=== PATIENT | male | born 1960 | race Caucasian/White ===

== ENCOUNTER 2019-05-01 10:17 | Emergency (ER) | payer BC, MEDICAID ==
[~2019-05-01] VITALS: Ht 190.5 cm; Wt 90.0 kg
[~2019-05-01 10:17] MED LIST: ASPI81TA30 PO; METO100T7 PO
[2019-05-01 10:29] VITALS: BP 104/66
--- NOTE | 2019-05-01 12:44 | NUR ---
NIL x [address] sharpe aware. Pt called to return to ER.
== END 2019-05-01 12:46 | disposition left against medical advice (07) ==
LOC: ER 10:18
DX: M54.89 Other dorsalgia (principal); Z53.21 Procedure and treatment not carried out due to patient leaving prior to being seen by health care provider

== ENCOUNTER 2020-04-08 15:15 | Inpatient (IN) | payer BC, MEDICAID ==
[~2020-04-08] VITALS: Ht 188 cm; Wt 100.0 kg
[2020-04-08] VITALS (8 sets, daily range): BP systolic 95–111; BP diastolic 44–60
--- NOTE | 2020-04-08 16:25 | NUR ---
Pt taken to ct via rsharron.
[2020-04-08 16:56] LABS: EOSINOPHILS % (AUTO) 0.8 % (0-6); LYMPHOCYTES # (AUTO) 0.3 X10'3 (1.1-4.8); LYMPHOCYTES % (AUTO) 5.8 % (21-51); MEAN CORPUSCULAR HEMOGLOBIN 34.3 PG (27.0-31.0); MEAN CORPUSCULAR VOLUME 103.9 FL (78-98); MEAN PLATELET VOLUME 7.8 FL (7.4-10.4); MONOCYTES # (AUTO) 0.5 X10'3 (0-0.9); MONOCYTES % (AUTO) 9.6 % (2-12); NEUTROPHILS % (AUTO) 82.8 % (42-75); PLATELET COUNT 78 X10'3 (140-440); RED BLOOD COUNT 1.93 X10'6 (4.70-6.10); RED CELL DISTRIBUTION WIDTH 28.8 % (11.5-14.5); WHITE BLOOD COUNT 4.8 X10'3 (4.5-11.0)
[2020-04-08 17:07] LABS: HEMATOCRIT 20.1 % (42.0-52.0); HEMOGLOBIN 6.6 g/dl (14.0-17.9)
[2020-04-08 17:18] LABS: ALANINE AMINOTRANSFERASE 54 U/L (12-78); ALBUMIN 2.3 G/DL (3.4-5.0); ALKALINE PHOSPHATASE 151 IU/L (46-116); ANION GAP 14 (8-16); ASPARTATE AMINO TRANSFERASE 144 U/L (10-37); BLOOD UREA NITROGEN 69 MG/DL (7-18); BUN/CREATININE RATIO 30.4 (5.4-32.0); CALCIUM 8.8 MG/DL (8.5-10.1); CHLORIDE 92 MMOL/L (99-107); CREATININE 2.27 MG/DL (0.60-1.10); GLUCOSE 92 MG/DL (70-104); SODIUM 129 MMOL/L (135-145); TOTAL CARBON DIOXIDE 22.6 MMOL/L (24-32); eGFR 30 ML/MIN
[2020-04-08 17:26] LABS: ALBUMIN/GLOBULIN RATIO 0.4 (1.1-1.5); POTASSIUM 4.3 MMOL/L (3.5-5.1); TOTAL PROTEIN 7.5 G/DL (6.4-8.2)
[2020-04-08 17:40] LABS: LIPASE 2082 U/L (73-393)
[2020-04-08] MEDS ORDERED: CefTRIAXone/D5W-Rocephin 1gm 50 ML IV ONE (17:40)
[2020-04-08] MEDS ORDERED: pantoprazole 40 MG vial IV ONE (17:40)
[2020-04-08] MEDS ORDERED: normal saline 1000ml 1,000 ML IV ONE (18:00)
[2020-04-08 18:05] LABS: PARTIAL THROMBOPLASTIN TIME 32 SECONDS (22-32)
[2020-04-08 18:26] LABS: CLARITY,URINE SLIGHTLY CLOUDY (Clear); COLOR,URINE YELLOW (Yellow); GLUCOSE, URINE NEGATIVE (Neg); KETONES,URINE TRACE mg/dl (Neg); LEUKOCYTE ESTERASE ,URINE NEGATIVE (Neg); NITRITES, URINE NEGATIVE (Neg); OCCULT BLOOD,URINE NEGATIVE (Neg); PROTEIN,URINE NEGATIVE (Neg)
[2020-04-08 18:28] LABS: NUCLEATED RED BLOOD CELLS 2 /100WBC (0-0); TOTAL CELLS COUNTED 100
[2020-04-08 18:29] LABS: ANISOCYTOSIS 3+; PLATELET ESTIMATE DECREASED; POLYCHROMASIA 2+; TARGET CELLS 2+
[2020-04-08 18:30] LABS: ROULEAUX 1+
[2020-04-08 18:32] LABS: SMUDGE CELLS 2+
[2020-04-08 18:36] LABS: UA COLLECTION TYPE FOLEY CATH
[2020-04-08 18:38] LABS: BACTERIA,URINE FEW /HPF (Neg); RBC,URINE NONE SEEN /HPF (0-2); SQUAMOUS EPITHELIAL CELL,UR FEW /LPF (FEW); WBC,URINE NONE SEEN /HPF (0-4)
--- NOTE | 2020-04-08 18:44 | NUR ---
CALLED BLOOD BANK HAVING A BIT OF :ISSUES SHOULD BE GOOD TO GO IN 20 MINUTES."
--- NOTE | 2020-04-08 19:26 | NUR ---
HOSPIALIST AT BEDSIDE ASSESSING PATIENT
[2020-04-08] MEDS ORDERED: ondansetron/PF 4mg/2ml inj IV PRN (19:35)
[2020-04-08] MEDS ORDERED: magnesium hydroxide 30ml (MOM) UD suspension PO PRN (19:35)
[2020-04-08] MEDS ORDERED: magnesium 4gm in 100ml NS 100 ML IV PRN (19:35)
[2020-04-08] MEDS ORDERED: magnesium 2GM in 50ml NS 50 ML IV PRN (19:35)
[2020-04-08] MEDS ORDERED: potassium Cl 20 mEq SR tablet PO PRN ×2 (19:35)
[2020-04-08] MEDS ORDERED: mag hydrox/Alum hydrox/simeth 30ml oral suspension PO PRN (19:35)
[2020-04-08] MEDS ORDERED: potassium Cl 40MEQ/1/2NS 520ml 520 ML IV PRN ×2 (19:35)
[2020-04-08] MEDS ORDERED: magnesium Cl slow-release 64mg tablet PO PRN (19:35)
[2020-04-08] MEDS ORDERED: thiamine inj. 100 MG in normal saline 100ml IV soln 100 ML IV ONE (19:40)
[2020-04-08] MEDS: K and/or MAG REPLACEMENT MC SCH (20:00)
[2020-04-08] MEDS ORDERED: FURO40TA4 PO (20:03)
[2020-04-08] MEDS ORDERED: LAN0.125T PO (20:03)
[2020-04-08] MEDS ORDERED: NADO40TA3 PO (20:03)
[2020-04-08] MEDS ORDERED: PANT40TA54 PO (20:03)
[2020-04-08] MEDS ORDERED: SPIR25TA5 PO (20:03)
[2020-04-08] MEDS ORDERED: MIDO5TAB4 PO (20:03)
[2020-04-08] MEDS ORDERED: TROS20TA4 PO (20:03)
[2020-04-08] MEDS: furosemide 40mg/4ml inj IV SCH (20:49)
[2020-04-08] MEDS: pantoprazole 40MG/NS 100ML BAG 100 ML IV SCH (20:55)
--- NOTE | 2020-04-08 22:30 | NUR ---
Back timed note, patient has recieved a total of 4 mg since 2229 medication was scanned but not saved refer to eMAR for Ativan note
--- NOTE | 2020-04-08 23:16 | NUR ---
PATIENT RESTING COMFORTABLY, ADMINSTERED ATIVAN FOR DT PROTOCOL
[2020-04-09] VITALS (8 sets, daily range): BP systolic 95–135; BP diastolic 53–70
--- NOTE | 2020-04-09 00:32 | NUR ---
700 ML OF VICENTE COLORED URINE COLLECTED FROM COLLINS. TOTAL AMOUNT SINCE 183.
[2020-04-09] MEDS: LORazepam 2 mg/ml vial IV PRN ×3 (00:59→11:09)
[2020-04-09] MEDS: pantoprazole 40MG/NS 100ML BAG 100 ML IV SCH ×5 (00:59→21:00)
[2020-04-09 01:16] LABS: HEMATOCRIT 24.8 % (42.0-52.0); HEMOGLOBIN 8.3 g/dl (14.0-17.9); MEAN CORPUSCULAR HEMOGLOBIN 33.3 PG (27.0-31.0); MEAN CORPUSCULAR HGB CONC 33.4 g/dL (33.0-36.5); MEAN CORPUSCULAR VOLUME 99.7 FL (78-98); MEAN PLATELET VOLUME 8.1 FL (7.4-10.4); PLATELET COUNT 68 X10'3 (140-440); RED BLOOD COUNT 2.49 X10'6 (4.70-6.10); WHITE BLOOD COUNT 5.2 X10'3 (4.5-11.0)
--- NOTE | 2020-04-09 03:06 | NUR ---
patient in bed eyes closed rr even un labored no observable s/s of acute stress atthis time will continue to monitor
--- NOTE | 2020-04-09 06:40 | NUR ---
At bedside to give PRN Ativan as pt has significant tremors. Pt mumbling, then asked what I was doing. When I explained what I was doing, pt became concerned stating "you're freaking the dog out". I attempted to reorient pt at that time.
[2020-04-09] MEDS: spironolactone 25 MG tablet PO SCH ×2 (08:00→20:00)
[2020-04-09] MEDS ORDERED: thiamine 100mg tablet PO SCH (08:00)
[2020-04-09] MEDS ORDERED: multivitamins, therapeutics tablet PO SCH (08:00)
[2020-04-09] MEDS ORDERED: folic acid 1mg tablet PO SCH (08:00)
[2020-04-09] MEDS: midodrine 5mg tablet PO SCH ×3 (08:00→21:00)
[2020-04-09] MEDS: digoxin 125mcg (0.125mg) tablet PO SCH (08:00)
[2020-04-09] MEDS: K and/or MAG REPLACEMENT MC SCH ×2 (08:00→20:00)
[2020-04-09] MEDS ORDERED: folic acid inj. 2 MG, thiamine inj. 100 MG, MVI, adult No.4 with vit. K 10 ML in dextro... IV SCH ×4 (08:00)
--- NOTE | 2020-04-09 08:11 | NUR ---
Attempted to rouse pt to assess his ability to take his PO medications. Pt mumbling incomprehensive sentences, and became easily agitated when I attempted to adjust his line and monitors. Unable to further rouse pt at this time.
[2020-04-09 08:27] LABS: HEMOGLOBIN 7.8 g/dl (14.0-17.9); LYMPHOCYTES # (AUTO) 0.5 X10'3 (1.1-4.8); MONOCYTES # (AUTO) 0.9 X10'3 (0-0.9); NEUTROPHILS # (AUTO) 3.7 X10'3 (1.8-7.7); WHITE BLOOD COUNT 5.1 X10'3 (4.5-11.0)
[2020-04-09 08:30] LABS: BASOPHILS % (AUTO) 0.8 % (0-1); EOSINOPHILS % (AUTO) 0.4 % (0-6); HEMATOCRIT 22.8 % (42.0-52.0); LYMPHOCYTES % (AUTO) 9.3 % (21-51); MEAN CORPUSCULAR HEMOGLOBIN 33.9 PG (27.0-31.0); MEAN CORPUSCULAR HGB CONC 34.2 g/dL (33.0-36.5); MEAN CORPUSCULAR VOLUME 99.2 FL (78-98); MEAN PLATELET VOLUME 7.7 FL (7.4-10.4); MONOCYTES % (AUTO) 16.8 % (2-12); NEUTROPHILS % (AUTO) 72.7 % (42-75); PLATELET COUNT 68 X10'3 (140-440); RED CELL DISTRIBUTION WIDTH 26.1 % (11.5-14.5)
[2020-04-09 08:35] LABS: OCCULT BLOOD STOOL NEGATIVE (Neg)
[2020-04-09 08:56] LABS: ALANINE AMINOTRANSFERASE 43 U/L (12-78); ALBUMIN 2.1 G/DL (3.4-5.0); ALKALINE PHOSPHATASE 135 IU/L (46-116); AMYLASE 37 U/L (25-115); ANION GAP 13 (8-16); ASPARTATE AMINO TRANSFERASE 119 U/L (10-37); BILIRUBIN,TOTAL 7.7 MG/DL (0.1-1.0); BLOOD UREA NITROGEN 62 MG/DL (7-18); BUN/CREATININE RATIO 35.2 (5.4-32.0); CALCIUM 8.2 MG/DL (8.5-10.1); CHLORIDE 96 MMOL/L (99-107); CREATININE 1.76 MG/DL (0.60-1.10); GLUCOSE 104 MG/DL (70-104); MAGNESIUM 1.6 MG/DL (1.5-2.4); SODIUM 131 MMOL/L (135-145); TOTAL CARBON DIOXIDE 21.6 MMOL/L (24-32); eGFR 40 ML/MIN
[2020-04-09 09:01] LABS: ALBUMIN/GLOBULIN RATIO 0.4 (1.1-1.5); LIPASE 1641 U/L (73-393); PLATELET ESTIMATE DECREASED; POTASSIUM 4.1 MMOL/L (3.5-5.1); TOTAL PROTEIN 6.9 G/DL (6.4-8.2)
[2020-04-09 09:04] LABS: TOTAL CELLS COUNTED 100
[2020-04-09 09:05] LABS: ANISOCYTOSIS 3+; HYPOCHROMASIA 1+; TARGET CELLS FEW
[2020-04-09 09:06] LABS: POLYCHROMASIA FEW
[2020-04-09] MEDS: furosemide 40mg/4ml inj IV SCH (09:49)
[2020-04-09] MEDS ORDERED: DIGOXIN IMMUNE FAB IV ONE (09:55)
[2020-04-09] MEDS ORDERED: NORMAL SALINE IV ONE (09:55)
--- NOTE | 2020-04-09 16:17 | NUR ---
Pt taken down to GI lab for EGD
--- NOTE | 2020-04-09 16:20 | NUR ---
Unable to Dart pt due to ALOC
[2020-04-09] MEDS ORDERED: fentaNYL/PF 50MCG/1 ML 2ML syringe ONE (17:57)
[2020-04-09] MEDS ORDERED: LIDOcaine Viscous 15ml cup ONE (17:57)
[2020-04-09] MEDS ORDERED: MIDAZolam 5mg/5ml vial ONE (17:57)
--- NOTE | 2020-04-09 18:00 | NUR ---
Patient in room PCU 3015. I have received report from Kin RN/ BALAJI RN and had the opportunity to ask questions and assume patient care.
--- NOTE | 2020-04-09 18:23 | NUR ---
Problems reprioritized. Patient report given, questions answered & plan of care reviewed with Abelino LOUIS.
[2020-04-09] MEDS ORDERED: metoprolol tartrate 25mg tablet PO SCH (20:00)
[2020-04-09] MEDS ORDERED: TROSPIUM CHLORIDE 20 MG PO SCH (21:00)
[2020-04-10] MEDS: pantoprazole 40MG/NS 100ML BAG 100 ML IV SCH ×6 (00:16→20:32)
[2020-04-10] MEDS: LORazepam 2 mg/ml vial IV PRN ×5 (00:37→17:12)
[2020-04-10 02:00] VITALS: BP 118/64
--- NOTE | 2020-04-10 02:42 | NUR ---
PAGER ID: [phone] MESSAGE: [id number] SHARON BRODY, RETURNED FROM EGD WITH NO ORDER FOR COLLINS CATHETER. PATIENT HAS MULITPLE WOUNDS . ALSO IS CONFUSED AT THIS TIME WELL. MAY WE KEEP IT FOR NOW AND GET AN ORDER TO DO SO THANK YOU KENYON LOUIS [phone]
[2020-04-10 06:30] LABS: BASOPHILS % (AUTO) 0.7 % (0-1); EOSINOPHILS % (AUTO) 0.5 % (0-6); HEMOGLOBIN 8.3 g/dl (14.0-17.9); LYMPHOCYTES # (AUTO) 0.3 X10'3 (1.1-4.8); LYMPHOCYTES % (AUTO) 6.7 % (21-51); MEAN CORPUSCULAR HEMOGLOBIN 33.3 PG (27.0-31.0); MEAN CORPUSCULAR HGB CONC 33.2 g/dL (33.0-36.5); MEAN CORPUSCULAR VOLUME 100.1 FL (78-98); MEAN PLATELET VOLUME 7.4 FL (7.4-10.4); MONOCYTES # (AUTO) 0.9 X10'3 (0-0.9); MONOCYTES % (AUTO) 18.9 % (2-12); NEUTROPHILS # (AUTO) 3.5 X10'3 (1.8-7.7); NEUTROPHILS % (AUTO) 73.2 % (42-75); PLATELET COUNT 82 X10'3 (140-440); RED CELL DISTRIBUTION WIDTH 26.6 % (11.5-14.5); WHITE BLOOD COUNT 4.8 X10'3 (4.5-11.0)
--- NOTE | 2020-04-10 06:30 | NUR ---
Patient in room PCU 3015. I have received report from Abelino LOUIS and had the opportunity to ask questions and assume patient care.
--- NOTE | 2020-04-10 06:31 | NUR ---
Problems reprioritized. Patient report given, questions answered & plan of care reviewed with VICENTE LOUIS.
[2020-04-10 06:55] LABS: ALANINE AMINOTRANSFERASE 52 U/L (12-78); ALBUMIN 2.1 G/DL (3.4-5.0); ALKALINE PHOSPHATASE 143 IU/L (46-116); AMYLASE 23 U/L (25-115); ANION GAP 10 (8-16); ASPARTATE AMINO TRANSFERASE 115 U/L (10-37); BILIRUBIN,TOTAL 7.3 MG/DL (0.1-1.0); BLOOD UREA NITROGEN 49 MG/DL (7-18); BUN/CREATININE RATIO 39.8 (5.4-32.0); CALCIUM 8.6 MG/DL (8.5-10.1); CHLORIDE 100 MMOL/L (99-107); CREATININE 1.23 MG/DL (0.60-1.10); GLUCOSE 115 MG/DL (70-104); LIPASE 744 U/L (73-393); MAGNESIUM 1.5 MG/DL (1.5-2.4); SODIUM 137 MMOL/L (135-145); TOTAL CARBON DIOXIDE 26.6 MMOL/L (24-32); eGFR 61 ML/MIN
[2020-04-10 06:56] LABS: PHOSPHORUS 1.9 MG/DL (2.3-4.5); POTASSIUM 3.9 MMOL/L (3.5-5.1); TOTAL PROTEIN 7.1 G/DL (6.4-8.2)
[2020-04-10 06:57] LABS: ALBUMIN/GLOBULIN RATIO 0.4 (1.1-1.5)
[2020-04-10 07:00] VITALS: BP 131/79
[2020-04-10 07:38] LABS: ANISOCYTOSIS 3+; HYPOCHROMASIA 1+; PLATELET ESTIMATE DECREASED; POLYCHROMASIA FEW; TARGET CELLS FEW; TOTAL CELLS COUNTED 100
[2020-04-10] MEDS: spironolactone 25 MG tablet PO SCH ×3 (08:00→20:00)
[2020-04-10] MEDS: midodrine 5mg tablet PO SCH ×4 (08:00→20:33)
[2020-04-10] MEDS ORDERED: thiamine inj. 100 MG, MVI, adult No.4 with vit. K 10 ML in dextrose 5% water 500ml 500 ML IV SCH ×3 (08:00)
[2020-04-10] MEDS: K and/or MAG REPLACEMENT MC SCH ×2 (08:00→20:00)
[2020-04-10] MEDS: digoxin 125mcg (0.125mg) tablet PO SCH (08:00)
[2020-04-10] MEDS: folic acid 1mg/0.2ml inj IV SCH (08:21)
--- NOTE | 2020-04-10 10:01 | NUR ---
Pt with a low Nicolás of 11. Per physical assessment pt with BLE 2+ edema, excoriation to butt, and maceration to back and bilat leg. Wound care has been consulted for further skin assessment. Pt NPO at this time. Will continue to follow closely and monitor need for nutrition intervention. Addendum: 04/10/20 at [address] Amended: Links added.
[2020-04-10 11:00] VITALS: BP 109/60
--- NOTE | 2020-04-10 12:54 | NUR ---
Patient appears to be aggravated and shaky non stop. Ativan 2mg was given, patient grimacing facial expressions noted. Will continue to support patient and backing off Ativan.
--- NOTE | 2020-04-10 13:52 | NUR ---
Patient unable to arise. Cannot do incentive or any teachings. Will continue to monitor.
[2020-04-10 15:00] VITALS: BP 98/65
--- NOTE | 2020-04-10 15:56 | NUR ---
Paged Dr. Davalos PAGER ID: [phone] MESSAGE: Re: Cesar Do RM [id number]. CT done. Would you like fluids running and [facility]? Please advise Mara LOUIS 1920
--- NOTE | 2020-04-10 16:36 | NUR ---
Radiology called to have a conference regarding the patient CT scan. records management technician named Nasreen was given cell number to Dr. Davalos to discuss results of CT of abd. Will continue to monitor.
--- NOTE | 2020-04-10 17:02 | NUR ---
Dr. Davalos called regarding Patients concerns. is aware of CT scan and is not too worried about results. Replace Phos per protocol and banna bag is enough fluids. is aware teeth chattering repeatedly. Will continue to monitor. Addendum: 04/10/20 at 1730 by Mara Tao RN not wanting an order for [facility]. Will continue to monitor. Addendum: 04/10/20 at 1732 by Mara Tao RN MD also aware of patients disposition and unable to follow commands or answer appropriately. MD wants to only use Ativan when absolutely necessary.
[2020-04-10] MEDS ORDERED: sodium phosphate inj. 15 MMOL in dextrose 5%-water 250 ML IV ONE (17:05)
[2020-04-10 18:00] VITALS: BP 90/56
--- NOTE | 2020-04-10 18:18 | NUR ---
Patient in room PCU 3015. I have received report from Abelino LOUIS and had the opportunity to ask questions and assume patient care.
[2020-04-10] MEDS: oxybutynin 5mg tablet PO SCH (20:00)
[2020-04-10 22:00] VITALS: BP 115/66
--- NOTE | 2020-04-10 22:33 | NUR ---
PAGER ID: [phone] MESSAGE: [id number] SHARON BRODY . NPO , VICENTE URINE , NO IVFS . WAS AQURING IF WE COULD/SHOULD ADD THEM THANKS KENYON LOUIS [phone]
[2020-04-11 02:00] VITALS: BP 109/53
[2020-04-11] MEDS: pantoprazole 40MG/NS 100ML BAG 100 ML IV SCH ×6 (06:00→23:58)
[2020-04-11 06:30] VITALS: BP 102/44
[2020-04-11 06:36] LABS: BASOPHILS % (AUTO) 0.8 % (0-1); HEMATOCRIT 24.5 % (42.0-52.0); HEMOGLOBIN 8.3 g/dl (14.0-17.9); LYMPHOCYTES # (AUTO) 0.5 X10'3 (1.1-4.8); MEAN CORPUSCULAR HGB CONC 33.8 g/dL (33.0-36.5); NEUTROPHILS # (AUTO) 4.3 X10'3 (1.8-7.7); WHITE BLOOD COUNT 5.9 X10'3 (4.5-11.0)
[2020-04-11 06:38] LABS: EOSINOPHILS % (AUTO) 0.7 % (0-6); LYMPHOCYTES % (AUTO) 7.9 % (21-51); MEAN CORPUSCULAR HEMOGLOBIN 33.6 PG (27.0-31.0); MEAN CORPUSCULAR VOLUME 99.4 FL (78-98); MEAN PLATELET VOLUME 7.4 FL (7.4-10.4); MONOCYTES % (AUTO) 17.6 % (2-12); PLATELET COUNT 85 X10'3 (140-440); RED BLOOD COUNT 2.46 X10'6 (4.70-6.10); RED CELL DISTRIBUTION WIDTH 28.1 % (11.5-14.5)
--- NOTE | 2020-04-11 06:45 | NUR ---
Patient in room PCU 3015. I have received report from MISSY Roca and had the opportunity to ask questions and assume patient care.
[2020-04-11 07:00] LABS: ALANINE AMINOTRANSFERASE 50 U/L (12-78); AMYLASE 16 U/L (25-115); ANION GAP 9 (8-16); ASPARTATE AMINO TRANSFERASE 110 U/L (10-37); BILIRUBIN,TOTAL 6.3 MG/DL (0.1-1.0); BLOOD UREA NITROGEN 37 MG/DL (7-18); BUN/CREATININE RATIO 37.8 (5.4-32.0); CALCIUM 8.4 MG/DL (8.5-10.1); CHLORIDE 104 MMOL/L (99-107); CREATININE 0.98 MG/DL (0.60-1.10); GLUCOSE 113 MG/DL (70-104); LIPASE 425 U/L (73-393); MAGNESIUM 1.5 MG/DL (1.5-2.4); POTASSIUM 3.7 MMOL/L (3.5-5.1); SODIUM 140 MMOL/L (135-145); TOTAL CARBON DIOXIDE 27.3 MMOL/L (24-32); eGFR 79 ML/MIN
[2020-04-11 07:05] LABS: PHOSPHORUS 2.1 MG/DL (2.3-4.5)
[2020-04-11 07:12] LABS: ANISOCYTOSIS 3+; HYPOCHROMASIA 1+; NUCLEATED RED BLOOD CELLS 2 /100WBC (0-0); PLATELET ESTIMATE DECREASED; POLYCHROMASIA 2+; ROULEAUX 1+; TARGET CELLS 2+; TOTAL CELLS COUNTED 100
[2020-04-11 07:13] LABS: TOXIC VACUOLATION 1+
[2020-04-11 07:20] LABS: ALBUMIN/GLOBULIN RATIO 0.4 (1.1-1.5); TOTAL PROTEIN 6.8 G/DL (6.4-8.2)
[2020-04-11 07:24] LABS: ALKALINE PHOSPHATASE 138 IU/L (46-116)
[2020-04-11] MEDS: midodrine 5mg tablet PO SCH ×3 (07:32→21:21)
[2020-04-11] MEDS: digoxin 125mcg (0.125mg) tablet PO SCH (07:32)
[2020-04-11] MEDS: oxybutynin 5mg tablet PO SCH (07:32)
[2020-04-11] MEDS: K and/or MAG REPLACEMENT MC SCH ×2 (07:32→20:00)
[2020-04-11] MEDS ORDERED: bisacodyl 10mg suppository rectal RC PRN (07:35)
[2020-04-11] MEDS: spironolactone 25 MG tablet PO SCH ×2 (08:00→20:00)
[2020-04-11] MEDS: thiamine inj. 100 MG in normal saline 100ml IV soln 100 ML IV SCH (08:34)
[2020-04-11] MEDS: folic acid 1mg/0.2ml inj IV SCH (08:34)
[2020-04-11 11:00] VITALS: BP 109/69
--- NOTE | 2020-04-11 12:01 | NUR ---
Pt with a low Nicolás of 11. Per physical assessment pt with BLE 2+ edema, excoriation to butt, and maceration to back and bilat leg. Wound care has seen patient, reporting that pt has left elbow abrasion, reddened sacrum SDTI/DTI, right orbital TBI. ST saw patient this morning, recommends feeder with pureed diet and nectar thick liquids. Will continue to follow closely and monitor need for nutrition intervention. Addendum: 04/11/20 at [address] Amended: Links added.
[2020-04-11] MEDS ORDERED: dextrose 5%-1/2 normal saline 1,000 ML IV SCH (12:40)
[2020-04-11] MEDS ORDERED: LORazepam 2 mg/ml vial IV PRN (12:40)
[2020-04-11] MEDS ORDERED: haloperidol lactate 5mg/ml inj IM PRN (12:40)
[2020-04-11] MEDS: dextrose 5%-normal saline 1,000 ML IV SCH ×2 (13:08→23:59)
[2020-04-11 15:00] VITALS: BP 102/63
[2020-04-11 18:00] VITALS: BP 125/74
--- NOTE | 2020-04-11 18:20 | NUR ---
Problems reprioritized. Patient report given, questions answered & plan of care reviewed with MISSY [place].
[2020-04-11] MEDS: LORazepam 2 mg/ml vial IV PRN ×2 (20:30→23:48)
[2020-04-11] MEDS ORDERED: oxybutynin 5mg tablet PO ONE (20:50)
[2020-04-11 22:00] VITALS: BP 121/71
[2020-04-12 02:00] VITALS: BP 102/71
[2020-04-12] MEDS: LORazepam 2 mg/ml vial IV PRN ×2 (04:44→14:10)
[2020-04-12] MEDS: dextrose 5%-normal saline 1,000 ML IV SCH ×3 (04:46→21:14)
[2020-04-12] MEDS: pantoprazole 40MG/NS 100ML BAG 100 ML IV SCH ×4 (05:18→21:03)
--- NOTE | 2020-04-12 06:31 | NUR ---
Patient in room PCU 3015. I have received report from Vita LOUIS and had the opportunity to ask questions and assume patient care.
--- NOTE | 2020-04-12 06:32 | NUR ---
Problems reprioritized. Patient report given, questions answered & plan of care reviewed with Vita RN.
--- NOTE | 2020-04-12 06:39 | NUR ---
pt is confused, disoriented, unable to follow commands, and directions. He is very spontaneous and sporadic. Bed alarm on. Hx of extensive falls r/t ETOH. Pt has numerous bruises ranging from light yellow to dark purple all over his body; right flank (marked to monitor growth), bilateral knee bruises, right orbital and left elbow. Platelets are low, monitoring for bleeding. Abd is jaundiced with white patches of mottling, his states its from a heating pad. Pt was able to swallow and eat a few bites of yogurt this shift. Pt is mostly confused and disoriented and does not follow directions, safety measures or instructions provided by the nursing staff. Will continue to monitor pt.
--- NOTE | 2020-04-12 06:43 | NUR ---
Patient in room PCU 3015. I have received report from Jean LOUIS and had the opportunity to ask questions and assume patient care.
[2020-04-12 06:45] LABS: EOSINOPHILS % (AUTO) 0.4 % (0-6); LYMPHOCYTES # (AUTO) 0.5 X10'3 (1.1-4.8); PLATELET COUNT 87 X10'3 (140-440)
[2020-04-12 06:46] LABS: BASOPHILS % (AUTO) 0.3 % (0-1); HEMATOCRIT 23.7 % (42.0-52.0); LYMPHOCYTES % (AUTO) 7.2 % (21-51); MEAN CORPUSCULAR HEMOGLOBIN 33.9 PG (27.0-31.0); MEAN CORPUSCULAR HGB CONC 33.6 g/dL (33.0-36.5); MEAN PLATELET VOLUME 7.1 FL (7.4-10.4); MONOCYTES # (AUTO) 1.2 X10'3 (0-0.9); MONOCYTES % (AUTO) 17.7 % (2-12); NEUTROPHILS # (AUTO) 4.9 X10'3 (1.8-7.7); NEUTROPHILS % (AUTO) 74.4 % (42-75); RED BLOOD COUNT 2.35 X10'6 (4.70-6.10); RED CELL DISTRIBUTION WIDTH 28.9 % (11.5-14.5); WHITE BLOOD COUNT 6.5 X10'3 (4.5-11.0)
[2020-04-12 06:50] LABS: ALANINE AMINOTRANSFERASE 48 U/L (12-78); ALBUMIN 1.9 G/DL (3.4-5.0); ALKALINE PHOSPHATASE 135 IU/L (46-116); AMYLASE 15 U/L (25-115); ANION GAP 7 (8-16); ASPARTATE AMINO TRANSFERASE 103 U/L (10-37); BILIRUBIN,TOTAL 5.8 MG/DL (0.1-1.0); BLOOD UREA NITROGEN 27 MG/DL (7-18); BUN/CREATININE RATIO 29.7 (5.4-32.0); CALCIUM 8.1 MG/DL (8.5-10.1); CHLORIDE 109 MMOL/L (99-107); CREATININE 0.91 MG/DL (0.60-1.10); GLUCOSE 140 MG/DL (70-104); LIPASE 283 U/L (73-393); MAGNESIUM 1.5 MG/DL (1.5-2.4); POTASSIUM 3.4 MMOL/L (3.5-5.1); SODIUM 144 MMOL/L (135-145); TOTAL CARBON DIOXIDE 28.5 MMOL/L (24-32); eGFR 86 ML/MIN
[2020-04-12 06:53] LABS: ALBUMIN/GLOBULIN RATIO 0.4 (1.1-1.5); PHOSPHORUS 1.7 MG/DL (2.3-4.5); TOTAL PROTEIN 6.4 G/DL (6.4-8.2)
[2020-04-12 07:00] VITALS: BP 110/67
[2020-04-12 07:41] LABS: ANISOCYTOSIS 3+; PLATELET ESTIMATE DECREASED; TARGET CELLS 1+
[2020-04-12] MEDS: folic acid 1mg/0.2ml inj IV SCH (07:47)
[2020-04-12] MEDS: thiamine inj. 100 MG in normal saline 100ml IV soln 100 ML IV SCH (07:48)
[2020-04-12] MEDS: oxybutynin 5mg tablet PO SCH ×2 (08:00→21:14)
[2020-04-12] MEDS: K and/or MAG REPLACEMENT MC SCH ×3 (08:00→20:00)
[2020-04-12] MEDS: midodrine 5mg tablet PO SCH ×3 (08:00→21:05)
[2020-04-12] MEDS: spironolactone 25 MG tablet PO SCH ×2 (08:00→21:21)
--- NOTE | 2020-04-12 08:28 | NUR ---
MRI, [facility] is advising that MRI is not advised. Patient is not a good candidate for MRI. Will page Dr. Davalos
--- NOTE | 2020-04-12 08:31 | NUR ---
promotional table spacer PAGER ID: [phone] MESSAGE: Re: Cesar Madison [id number]. MRI called stating Pt not good canidate is CT with contrast an option? Also may I may N/O for K and Mg replacement? Please advise Mara LOUIS [phone]
--- NOTE | 2020-04-12 08:52 | NUR ---
Dr. Davalos at bedside with patient and nurse. still believes he is being over sedated with Ativan, kepp going forward with Not using it only Q6. New orders to stop DIg, have replacement orders for K, Mg, and Phos. Patient is improving on labs and being awake. MD is aware of belly and foot pain. No need for MRI due to patients inability to follow commands. CT is not being ordered at this time. We will continue to monitor.
[2020-04-12] MEDS ORDERED: potassium Cl 40MEQ/1/2NS 520ml 520 ML IV PRN (09:20)
[2020-04-12] MEDS ORDERED: magnesium 4gm in 100ml NS 100 ML IV PRN (09:20)
[2020-04-12] MEDS ORDERED: sodium phosphate inj. 15 MMOL in dextrose 5%-water 250 ML IV PRN ×2 (09:20→09:50)
[2020-04-12] MEDS ORDERED: potassium Cl 20 mEq SR tablet PO PRN (09:20)
[2020-04-12] MEDS ORDERED: sodium phosphate inj. 30 MMOL in dextrose 5%-water 250 ML IV PRN ×2 (09:20→09:50)
[2020-04-12 10:11] LABS: POTASSIUM 3.5 MMOL/L (3.5-5.1)
[2020-04-12 10:12] LABS: PHOSPHORUS 1.6 MG/DL (2.3-4.5)
[2020-04-12] MEDS: morphine 2 MG/ML inj. syringe IV PRN ×2 (10:43→21:04)
[2020-04-12] MEDS: potassium Cl 20 mEq SR tablet PO PRN (10:44)
[2020-04-12] MEDS: Neutra Phos packet PO PRN (10:45)
[2020-04-12 11:00] VITALS: BP 103/62
--- NOTE | 2020-04-12 11:34 | NUR ---
Dr. Davalos was informed about patients aggressive behaviors, teeth clenching and biting of cheeks and tongue and rapid stigma in both eyes. Patient is hallucinating being aggravated and aggressive. MD is aware and believes it is in correlation of ETOH withdrawals. Use Ativan if needed. We will continue to monitor. Addendum: 04/12/20 at 1204 by Mara Tao RN Add Liquid Multi vit to daily medication regiment.
[2020-04-12] MEDS: MULTIVIT-MIN/FERROUS GLUCONATE 9 MG/15 ML LIQUID PO SCH (14:05)
[2020-04-12 15:00] VITALS: BP 115/53
[2020-04-12 18:00] VITALS: BP 122/63
--- NOTE | 2020-04-12 18:03 | NUR ---
Problems reprioritized. Patient report given, questions answered & plan of care reviewed with Maddison LOUIS.
[2020-04-12] MEDS ORDERED: thiamine inj. 100 MG in normal saline 100ml IV soln 99 ML IV SCH (20:43)
[2020-04-12 22:00] VITALS: BP 120/66
[2020-04-13 02:00] VITALS: BP 124/62
[2020-04-13] MEDS: pantoprazole 40MG/NS 100ML BAG 100 ML IV SCH ×5 (02:16→20:34)
[2020-04-13] MEDS: LORazepam 2 mg/ml vial IV PRN ×8 (02:16→23:42)
[2020-04-13] MEDS: dextrose 5%-normal saline 1,000 ML IV SCH ×4 (05:30→23:41)
[2020-04-13 06:00] VITALS: BP 123/54
--- NOTE | 2020-04-13 06:45 | NUR ---
Patient in room PCU 3015. I have received report from Felix LOUIS and had the opportunity to ask questions and assume patient care.
--- NOTE | 2020-04-13 06:47 | NUR ---
Problems reprioritized. Patient report given, questions answered & plan of care reviewed with Angela LOUIS.
--- NOTE | 2020-04-13 07:03 | NUR ---
Patient in room PCU 3015. I have received report from Felix LOUIS and had the opportunity to ask questions and assume patient care.
[2020-04-13 07:06] LABS: ALANINE AMINOTRANSFERASE 52 U/L (12-78); ALBUMIN 1.9 G/DL (3.4-5.0); ALKALINE PHOSPHATASE 140 IU/L (46-116); AMYLASE 16 U/L (25-115); ANION GAP 8 (8-16); ASPARTATE AMINO TRANSFERASE 111 U/L (10-37); BILIRUBIN,TOTAL 5.5 MG/DL (0.1-1.0); BLOOD UREA NITROGEN 20 MG/DL (7-18); BUN/CREATININE RATIO 21.5 (5.4-32.0); CHLORIDE 115 MMOL/L (99-107); CREATININE 0.93 MG/DL (0.60-1.10); GLUCOSE 120 MG/DL (70-104); LIPASE 315 U/L (73-393); MAGNESIUM 1.3 MG/DL (1.5-2.4); POTASSIUM 3.4 MMOL/L (3.5-5.1); SODIUM 148 MMOL/L (135-145); TOTAL CARBON DIOXIDE 25.5 MMOL/L (24-32); eGFR 84 ML/MIN
[2020-04-13 07:07] LABS: ALBUMIN/GLOBULIN RATIO 0.4 (1.1-1.5); PHOSPHORUS 1.8 MG/DL (2.3-4.5); TOTAL PROTEIN 6.5 G/DL (6.4-8.2)
[2020-04-13 07:24] LABS: HEMOGLOBIN 8.1 g/dl (14.0-17.9); MEAN PLATELET VOLUME 7.2 FL (7.4-10.4); MONOCYTES # (AUTO) 1.1 X10'3 (0-0.9); MONOCYTES % (AUTO) 14.8 % (2-12); NEUTROPHILS # (AUTO) 5.6 X10'3 (1.8-7.7)
[2020-04-13 07:26] LABS: BASOPHILS % (AUTO) 0.5 % (0-1); EOSINOPHILS # (AUTO) 0.1 X10'3 (0-0.9); EOSINOPHILS % (AUTO) 0.7 % (0-6); HEMATOCRIT 24.7 % (42.0-52.0); LYMPHOCYTES # (AUTO) 0.6 X10'3 (1.1-4.8); LYMPHOCYTES % (AUTO) 8.3 % (21-51); MEAN CORPUSCULAR HEMOGLOBIN 33.7 PG (27.0-31.0); MEAN CORPUSCULAR HGB CONC 32.8 g/dL (33.0-36.5); MEAN CORPUSCULAR VOLUME 102.8 FL (78-98); NEUTROPHILS % (AUTO) 75.7 % (42-75); PLATELET COUNT 95 X10'3 (140-440); RED CELL DISTRIBUTION WIDTH 28.7 % (11.5-14.5); WHITE BLOOD COUNT 7.4 X10'3 (4.5-11.0)
[2020-04-13] MEDS: K and/or MAG REPLACEMENT MC SCH ×2 (08:00→20:00)
[2020-04-13] MEDS: thiamine inj. 100 MG in normal saline 100ml IV soln 100 ML IV SCH (08:17)
[2020-04-13] MEDS: folic acid 1mg/0.2ml inj IV SCH (08:18)
[2020-04-13] MEDS: spironolactone 25 MG tablet PO SCH ×2 (09:34→20:33)
[2020-04-13] MEDS: midodrine 5mg tablet PO SCH ×3 (09:34→20:38)
[2020-04-13] MEDS: MULTIVIT-MIN/FERROUS GLUCONATE 9 MG/15 ML LIQUID PO SCH (09:34)
[2020-04-13] MEDS: oxybutynin 5mg tablet PO SCH ×2 (09:34→20:34)
[2020-04-13 09:41] LABS: ANISOCYTOSIS 3+; HYPOCHROMASIA 1+; PLATELET ESTIMATE DECREASED; POLYCHROMASIA FEW; STOMATOCYTES FEW; TARGET CELLS FEW; TEAR DROP CELLS FEW
[2020-04-13] MEDS: magnesium Cl slow-release 64mg tablet PO PRN ×2 (10:07→20:39)
[2020-04-13 11:00] VITALS: BP 108/64
[2020-04-13] MEDS ORDERED: lactulose 20gm/30ml cup PO ONE (11:45)
--- NOTE | 2020-04-13 11:45 | NUR ---
Notified Dr. Reynolds regarding ammonia level. PAGER ID: [phone] MESSAGE: [id number]. Juan Madison. Ammonia level 57. Can we do lactulose? Giana LOUIS PCU [id number].
[2020-04-13] MEDS: morphine 2 MG/ML inj. syringe IV PRN (12:36)
[2020-04-13] MEDS: Neutra Phos packet PO PRN (13:45)
[2020-04-13] MEDS: lactulose 20gm/30ml cup PO SCH ×2 (13:46→20:33)
[2020-04-13] MEDS: potassium Cl 20 mEq SR tablet PO PRN ×2 (13:46→20:39)
[2020-04-13 15:00] VITALS: BP 153/75
--- NOTE | 2020-04-13 15:31 | NUR ---
Initial: Pt admit w/ ALOC s/p fall in shower hx etoh abuse DX symptomatic anemia, GISSELL, acute GIB s/p EGD, hyponatremia, hepatic encephalopathy, etoh w/d, and acute etoh pancreatitis per MD note. Multiple liver lesions also noted on CT per MD note. Ammonia 57 now started on lactulose w/ moderate liquid BM's daily following prior 5 days constipation since admit. Receiving thiamin, folic, MVI/Fe for etoh hx per EMR. Pt AOx1 remains very confused advanced to pureed/nectar thick diet w/ feeder per HYDRAULIC PLUMBER recs but continues to refuse meals past 2.5 since diet order. Noted pt NPO for initial 3 days of admit meaning ~5 days of poor nutrition at this time. IF pt continues to refuse meals w/ ALOC then may require alternative nutrition to meet needs and also meet minimum severe malnutrition criteria. K/Mg/Phos all low receiving replacements per protocol. Will continue to monitor for PO acceptance and additional protein/kcal needs this admit. Rec: 1. continue pureed/nectar thick diet w/ feeder per HYDRAULIC PLUMBER/MD 2. monitor for ONS needs once PO acceptance 3. thiamin, folic, MVI for etoh 4. routine bowel care; lactulose for elevated ammonia per MD 5. IF continues to refuse PO w/ poor nutrition at least 7 days consider tube feeds in order to meet pt needs 6. scaled wt this admit Addendum: 04/13/20 at [address] Amended: Links added.
[2020-04-13 18:00] VITALS: BP 123/71
--- NOTE | 2020-04-13 18:28 | NUR ---
Problems reprioritized. Patient report given, questions answered & plan of care reviewed with Tessa LOUIS. Patient stable at transfer of care.
--- NOTE | 2020-04-13 18:40 | NUR ---
I have received report from Angela LOUIS and had the opportunity to ask questions and assume patient care.
[2020-04-13 22:00] VITALS: BP 127/73
[2020-04-14 02:00] VITALS: BP 121/72
[2020-04-14] MEDS: lactulose 20gm/30ml cup PO SCH ×4 (02:18→20:00)
[2020-04-14] MEDS: pantoprazole 40MG/NS 100ML BAG 100 ML IV SCH ×5 (02:18→22:09)
[2020-04-14 06:00] VITALS: BP 126/74
--- NOTE | 2020-04-14 06:17 | NUR ---
Problems reprioritized. Patient report given, questions answered & plan of care reviewed with Angela LOUIS.
--- NOTE | 2020-04-14 06:18 | NUR ---
Patient in room PCU 3015. I have received report from Tessa LOUIS and had the opportunity to ask questions and assume patient care.
--- NOTE | 2020-04-14 06:21 | NUR ---
Patient in room PCU 3015. I have received report from Tessa LOUIS and had the opportunity to ask questions and assume patient care.
[2020-04-14 06:54] LABS: MAGNESIUM 1.6 MG/DL (1.5-2.4); POTASSIUM 3.2 MMOL/L (3.5-5.1)
[2020-04-14 07:21] LABS: EOSINOPHILS % (AUTO) 0.4 % (0-6); HEMOGLOBIN 8.2 g/dl (14.0-17.9); LYMPHOCYTES # (AUTO) 0.7 X10'3 (1.1-4.8); MEAN CORPUSCULAR HEMOGLOBIN 33.9 PG (27.0-31.0); RED BLOOD COUNT 2.42 X10'6 (4.70-6.10)
[2020-04-14 07:22] LABS: BASOPHILS % (AUTO) 0.3 % (0-1); HEMATOCRIT 25.1 % (42.0-52.0); LYMPHOCYTES % (AUTO) 8.3 % (21-51); MEAN CORPUSCULAR HGB CONC 32.7 g/dL (33.0-36.5); MEAN CORPUSCULAR VOLUME 103.6 FL (78-98); MEAN PLATELET VOLUME 7.1 FL (7.4-10.4); MONOCYTES # (AUTO) 1.4 X10'3 (0-0.9); MONOCYTES % (AUTO) 17.2 % (2-12); NEUTROPHILS # (AUTO) 6.2 X10'3 (1.8-7.7); NEUTROPHILS % (AUTO) 73.8 % (42-75); PLATELET COUNT 101 X10'3 (140-440); RED CELL DISTRIBUTION WIDTH 28.8 % (11.5-14.5); WHITE BLOOD COUNT 8.4 X10'3 (4.5-11.0)
[2020-04-14 07:30] LABS: ALBUMIN 1.8 G/DL (3.4-5.0); ANION GAP 11 (8-16); BLOOD UREA NITROGEN 18 MG/DL (7-18); BUN/CREATININE RATIO 18.6 (5.4-32.0); CHLORIDE 120 MMOL/L (99-107); CREATININE 0.97 MG/DL (0.60-1.10); GLUCOSE 110 MG/DL (70-104); SODIUM 154 MMOL/L (135-145); TOTAL CARBON DIOXIDE 23.4 MMOL/L (24-32); eGFR 80 ML/MIN
[2020-04-14 07:49] LABS: TOTAL CELLS COUNTED 100
[2020-04-14 07:50] LABS: LARGE PLATELETS FEW; PLATELET ESTIMATE DECREASED
[2020-04-14 07:51] LABS: ANISOCYTOSIS 2+; HYPOCHROMASIA 1+; SPHEROCYTES 1+; TARGET CELLS 1+
[2020-04-14] MEDS: K and/or MAG REPLACEMENT MC SCH ×2 (08:00→20:00)
[2020-04-14 08:07] LABS: PHOSPHORUS 2.3 MG/DL (2.3-4.5)
[2020-04-14] MEDS: thiamine inj. 100 MG in normal saline 100ml IV soln 100 ML IV SCH (08:21)
[2020-04-14] MEDS: MULTIVIT-MIN/FERROUS GLUCONATE 9 MG/15 ML LIQUID PO SCH (09:25)
[2020-04-14] MEDS: spironolactone 25 MG tablet PO SCH ×2 (09:26→20:00)
[2020-04-14] MEDS: midodrine 5mg tablet PO SCH ×3 (09:27→21:00)
[2020-04-14] MEDS: oxybutynin 5mg tablet PO SCH ×2 (09:27→20:00)
[2020-04-14] MEDS: folic acid 1mg/0.2ml inj IV SCH (09:51)
--- NOTE | 2020-04-14 10:17 | NUR ---
Paged Dr. Reynolds regarding rectal tube. PAGER ID: [phone] MESSAGE: Can we please get a rectal tube for 3015A Cesar Madison? Patient stools are runny, constant, irritating sacrum wounds. Thank you. Giana LOUIS [phone]
[2020-04-14] MEDS: dextrose 5%-water 1,000 ML IV SCH ×2 (10:57→22:09)
[2020-04-14 11:00] VITALS: BP 134/77
[2020-04-14] MEDS: morphine 2 MG/ML inj. syringe IV PRN ×2 (11:29→15:44)
[2020-04-14] MEDS ORDERED: POTASSIUM BICARB 20meq eff tab 20 MEQ TABLET.EFF PO PRN (11:59)
[2020-04-14] MEDS: POTASSIUM BICARB 20meq eff tab 20 MEQ TABLET.EFF PO PRN ×2 (12:33→17:22)
--- NOTE | 2020-04-14 15:14 | NUR ---
PAGER ID: [phone] MESSAGE: Colton Delacruz [id number]. Lab reported results on pleural fluid from thora: gram stain rare WBC rare gram positive cocci in clusters. Thanks! Angela TREJO
--- NOTE | 2020-04-14 15:35 | NUR ---
PAGER ID: [phone] MESSAGE: The nurse of Dr. Pina just gave his cell елена to give you for when you call him regarding Dionna Rouse [id number]. [phone]
[2020-04-14] MEDS: LORazepam 2 mg/ml vial IV PRN (15:49)
[2020-04-14 18:00] VITALS: BP 118/76
--- NOTE | 2020-04-14 18:30 | NUR ---
Problems reprioritized. Patient report given, questions answered & plan of care reviewed with Maty RN. Patient stable at transfer of care.
[2020-04-14 22:00] VITALS: BP 150/69
[2020-04-15] MEDS: lactulose 20gm/30ml cup PO SCH ×4 (02:00→20:24)
[2020-04-15] MEDS: pantoprazole 40MG/NS 100ML BAG 100 ML IV SCH ×5 (04:04→20:24)
[2020-04-15 06:00] VITALS: BP 119/73
--- NOTE | 2020-04-15 06:35 | NUR ---
Patient in room PCU 3010P. I have received report from MISSY CENTENO and had the opportunity to ask questions and assume patient care.
[2020-04-15] MEDS: K and/or MAG REPLACEMENT MC SCH ×2 (08:00→20:00)
[2020-04-15 08:01] LABS: MAGNESIUM 1.6 MG/DL (1.5-2.4); POTASSIUM 3.2 MMOL/L (3.5-5.1)
[2020-04-15 09:29] LABS: BASOPHILS # (AUTO) 0.1 X10'3 (0-0.2); LYMPHOCYTES # (AUTO) 0.8 X10'3 (1.1-4.8); PLATELET COUNT 103 X10'3 (140-440)
[2020-04-15 09:31] LABS: EOSINOPHILS % (AUTO) 0.4 % (0-6); HEMATOCRIT 26.4 % (42.0-52.0); HEMOGLOBIN 8.5 g/dl (14.0-17.9); LYMPHOCYTES % (AUTO) 7.7 % (21-51); MEAN CORPUSCULAR HEMOGLOBIN 33.8 PG (27.0-31.0); MEAN CORPUSCULAR HGB CONC 32.3 g/dL (33.0-36.5); MEAN CORPUSCULAR VOLUME 104.4 FL (78-98); MEAN PLATELET VOLUME 7.6 FL (7.4-10.4); MONOCYTES # (AUTO) 1.3 X10'3 (0-0.9); MONOCYTES % (AUTO) 12.9 % (2-12); NEUTROPHILS # (AUTO) 7.8 X10'3 (1.8-7.7); RED BLOOD COUNT 2.53 X10'6 (4.70-6.10); RED CELL DISTRIBUTION WIDTH 28.9 % (11.5-14.5)
[2020-04-15 09:35] LABS: ALANINE AMINOTRANSFERASE 59 U/L (12-78); ALBUMIN 1.8 G/DL (3.4-5.0); ALKALINE PHOSPHATASE 153 IU/L (46-116); ANION GAP 10 (8-16); ASPARTATE AMINO TRANSFERASE 129 U/L (10-37); BILIRUBIN,TOTAL 6.1 MG/DL (0.1-1.0); BLOOD UREA NITROGEN 18 MG/DL (7-18); CALCIUM 8.9 MG/DL (8.5-10.1); CHLORIDE 121 MMOL/L (99-107); GLUCOSE 123 MG/DL (70-104); eGFR 77 ML/MIN
[2020-04-15 09:39] LABS: ALBUMIN/GLOBULIN RATIO 0.4 (1.1-1.5); POTASSIUM 3.7 MMOL/L (3.5-5.1); TOTAL PROTEIN 6.7 G/DL (6.4-8.2)
[2020-04-15 09:41] LABS: SODIUM 156 MMOL/L (135-145)
[2020-04-15] MEDS: MULTIVIT-MIN/FERROUS GLUCONATE 9 MG/15 ML LIQUID PO SCH (10:41)
[2020-04-15] MEDS: spironolactone 25 MG tablet PO SCH ×2 (10:43→20:28)
[2020-04-15] MEDS: oxybutynin 5mg tablet PO SCH ×2 (10:43→20:24)
[2020-04-15] MEDS: midodrine 5mg tablet PO SCH ×3 (10:51→20:34)
[2020-04-15 11:00] VITALS: BP 122/68
[2020-04-15] MEDS: folic acid 1mg/0.2ml inj IV SCH (12:32)
[2020-04-15] MEDS: thiamine inj. 100 MG in normal saline 100ml IV soln 100 ML IV SCH (12:32)
[2020-04-15] MEDS: dextrose 5%-water 1,000 ML IV SCH ×2 (12:33→23:00)
[2020-04-15 14:05] LABS: ANISOCYTOSIS 3+; NUCLEATED RED BLOOD CELLS 1 /100WBC (0-0); PLATELET ESTIMATE DECREASED; POLYCHROMASIA FEW; TOTAL CELLS COUNTED 100
[2020-04-15 14:06] LABS: HYPOCHROMASIA 1+; LARGE PLATELETS FEW; SMUDGE CELLS 1+; TARGET CELLS 1+
[2020-04-15] MEDS: levoFLOXACIN-Levaquin 500mg/D5 100 ML IV SCH (14:52)
[2020-04-15 15:00] VITALS: BP 135/79
[2020-04-15 18:00] VITALS: BP 120/81
--- NOTE | 2020-04-15 18:47 | NUR ---
Problems reprioritized. Patient report given, questions answered & plan of care reviewed with MISSY MARCELO.
[2020-04-15 22:00] VITALS: BP 103/78
--- NOTE | 2020-04-15 22:41 | NUR ---
Patient in room PCU 3015. I have received report from MISSY Keenan and had the opportunity to ask questions and assume patient care.
[2020-04-15] MEDS: morphine 2 MG/ML inj. syringe IV PRN (22:46)
[2020-04-16 02:00] VITALS: BP 132/81
[2020-04-16] MEDS: pantoprazole 40MG/NS 100ML BAG 100 ML IV SCH ×5 (02:00→21:58)
[2020-04-16] MEDS: lactulose 20gm/30ml cup PO SCH ×4 (02:52→19:45)
[2020-04-16] MEDS: dextrose 5%-water 1,000 ML IV SCH ×2 (03:39→11:51)
[2020-04-16 06:00] VITALS: BP 139/86
--- NOTE | 2020-04-16 06:27 | NUR ---
Problems reprioritized. Patient report given, questions answered & plan of care reviewed with MISSY Connor.
--- NOTE | 2020-04-16 06:30 | NUR ---
Patient in room PCU 3015. I have received report from Berta LOUIS and had the opportunity to ask questions and assume patient care.
[2020-04-16 07:00] LABS: BASOPHILS # (AUTO) 0.1 X10'3 (0-0.2); BASOPHILS % (AUTO) 0.4 % (0-1); EOSINOPHILS % (AUTO) 0.1 % (0-6); HEMATOCRIT 26.3 % (42.0-52.0); HEMOGLOBIN 8.5 g/dl (14.0-17.9); LYMPHOCYTES # (AUTO) 0.7 X10'3 (1.1-4.8); LYMPHOCYTES % (AUTO) 5.9 % (21-51); MEAN CORPUSCULAR HEMOGLOBIN 33.8 PG (27.0-31.0); MEAN CORPUSCULAR HGB CONC 32.2 g/dL (33.0-36.5); MEAN CORPUSCULAR VOLUME 105.1 FL (78-98); MEAN PLATELET VOLUME 7.6 FL (7.4-10.4); MONOCYTES # (AUTO) 1.4 X10'3 (0-0.9); MONOCYTES % (AUTO) 11.6 % (2-12); NEUTROPHILS # (AUTO) 9.6 X10'3 (1.8-7.7); PLATELET COUNT 90 X10'3 (140-440); RED CELL DISTRIBUTION WIDTH 27.4 % (11.5-14.5); WHITE BLOOD COUNT 11.7 X10'3 (4.5-11.0)
[2020-04-16 07:30] LABS: ALANINE AMINOTRANSFERASE 60 U/L (12-78); ALBUMIN 1.7 G/DL (3.4-5.0); ALKALINE PHOSPHATASE 149 IU/L (46-116); ANION GAP 10 (8-16); ASPARTATE AMINO TRANSFERASE 136 U/L (10-37); BILIRUBIN,TOTAL 5.8 MG/DL (0.1-1.0); BLOOD UREA NITROGEN 20 MG/DL (7-18); BUN/CREATININE RATIO 19.2 (5.4-32.0); CALCIUM 8.2 MG/DL (8.5-10.1); CHLORIDE 120 MMOL/L (99-107); CREATININE 1.04 MG/DL (0.60-1.10); GLUCOSE 124 MG/DL (70-104); POTASSIUM 3.1 MMOL/L (3.5-5.1); SODIUM 153 MMOL/L (135-145); eGFR 74 ML/MIN
[2020-04-16] MEDS: levoFLOXACIN-Levaquin 500mg/D5 100 ML IV SCH (07:36)
[2020-04-16] MEDS: spironolactone 25 MG tablet PO SCH ×2 (07:37→19:46)
[2020-04-16] MEDS: oxybutynin 5mg tablet PO SCH ×2 (07:37→19:44)
[2020-04-16] MEDS: MULTIVIT-MIN/FERROUS GLUCONATE 9 MG/15 ML LIQUID PO SCH (07:38)
[2020-04-16 07:41] LABS: ALBUMIN/GLOBULIN RATIO 0.4 (1.1-1.5); TOTAL PROTEIN 6.4 G/DL (6.4-8.2)
[2020-04-16] MEDS: folic acid 1mg tablet PO SCH (07:43)
[2020-04-16] MEDS: thiamine 100mg tablet PO SCH (07:44)
[2020-04-16] MEDS: K and/or MAG REPLACEMENT MC SCH ×3 (08:00→20:00)
[2020-04-16] MEDS: midodrine 5mg tablet PO SCH ×3 (08:00→19:45)
[2020-04-16 08:50] LABS: ANISOCYTOSIS 3+; PLATELET ESTIMATE DECREASED; TARGET CELLS FEW
[2020-04-16 11:00] VITALS: BP 138/83
--- NOTE | 2020-04-16 13:44 | NUR ---
Reassessment: Pt ALOC persists refusing all PO meals only 25% one meal past 8 days not meeting needs. Na 153 down from 156 yesterday receiving D5 at 70ml/hr. Pt remains on etoh protocol w/ lactulose and last ammonia 2/8 elevated at 53 per EMR. Pt would benefit from supplemental corpak EN to meet nutrition needs given prolonged poor intake; CHARMAINE [employer] MD regarding nutrition needs pending return call at this time. Given severe weakness in addition to inadequate intake since admit and BLE 2+ edema pt meets minimum severe malnutrition criteria at this time; MD notified. TF recs below given pt needs. Will continue to monitor. Rec: 1. continue pureed/nectar thick diet w/ feeder per BIAZZI NITRATOR OPERATOR/MD; encourage PO 2. thiamin, folic, MVI for etoh 3. routine bowel care; lactulose for elevated ammonia per MD 4. scaled wt this admit 6. Given refusing meals 8 days would benefit nutrition support in order to meet needs IF MD agreeable; poor PO is why meets severe malnutrition criteria this admit 7. IF NGTF; Glucerna 1.2 at 85ml/hr goal (pt not diabetic but higher protein w/ Glucerna formula and since pending scaled wt this admit) 8. IF TF; 250ml free water Q4 9. IF TF; PALB Q M/Th; daily wts Addendum: 04/16/20 at [address] Amended: Links added.
--- NOTE | 2020-04-16 14:15 | NUR ---
paged Dr Reynolds regarding adding the K protocol on pt. K at 3.1. asked to get orders for effervescent replacement.
[2020-04-16 15:00] VITALS: BP 114/47
--- NOTE | 2020-04-16 16:12 | NUR ---
PAGER ID: [phone] MESSAGE: Cesar Madison 15A- Pt has developed new mild wheezing. He is also drinking lots of fluids, 1220mls in, with 550mls urine & 500mls of stool output. Pt running D5 at 70ml/hr, protonix 20ml/hr. Decrease fluids?Thank you. Geeta [phone]
[2020-04-16] MEDS ORDERED: magnesium 4gm in 100ml NS 100 ML IV PRN (16:25)
[2020-04-16] MEDS ORDERED: furosemide 40mg/4ml inj IV ONE (16:25)
[2020-04-16] MEDS ORDERED: POTASSIUM BICARB 20meq eff tab 20 MEQ TABLET.EFF PO PRN (16:25)
[2020-04-16] MEDS ORDERED: potassium Cl 40MEQ/1/2NS 520ml 520 ML IV PRN (16:25)
[2020-04-16] MEDS ORDERED: magnesium Cl slow-release 64mg tablet PO PRN (16:25)
[2020-04-16 18:00] VITALS: BP 96/42
--- NOTE | 2020-04-16 18:30 | NUR ---
Patient in room PCU 3015. I have received report from Geeta LOUIS and had the opportunity to ask questions and assume patient care.
--- NOTE | 2020-04-16 18:32 | NUR ---
Problems reprioritized. Patient report given, questions answered & plan of care reviewed with Lorelei LOUIS.
[2020-04-16] MEDS: LORazepam 2 mg/ml vial IV PRN ×2 (19:42→22:08)
[2020-04-16] MEDS: lactobacillus rhamnosus 10,000 MMU CELLS/CAPSULE PO SCH (19:45)
--- NOTE | 2020-04-16 21:05 | NUR ---
promotional table spacer promotional table spacer Page Sent PAGER ID: [phone] MESSAGE: Pt Cesar Madison rm 3011 A removed inflated Mclain 45 mins ago some clots then- just voided no clots, reinsert Cmlain??- pt B/B incontinent, has rectal tube & some sm. wounds buttocks
--- NOTE | 2020-04-16 21:10 | NUR ---
called back, ok to replace Mclain if pt needs. Use smaller size than 16 Nigerien. see [facility] nursing order
[2020-04-16] MEDS: POTASSIUM BICARB 20meq eff tab 20 MEQ TABLET.EFF PO PRN (21:58)
[2020-04-16 22:00] VITALS: BP 114/47
[2020-04-16] MEDS: acetaminophen 325mg tablet PO PRN (22:06)
[2020-04-16] MEDS: haloperidol 5mg tablet PO PRN (23:14)
[2020-04-17] MEDS: lactulose 20gm/30ml cup PO SCH ×4 (01:29→20:36)
[2020-04-17] MEDS: pantoprazole 40MG/NS 100ML BAG 100 ML IV SCH ×5 (01:29→20:43)
[2020-04-17 02:00] VITALS: BP 102/54
--- NOTE | 2020-04-17 05:15 | NUR ---
Page Sent PAGER ID: [phone] MESSAGE: Cesar Joe #[id number] ok to DC Q6 accu cks- pt is not diabetic & has not met protocol in 10days?? #[id number] Abraham
--- NOTE | 2020-04-17 05:30 | NUR ---
MD davis cancel Q6 accu ck, pt is not diabetic
[2020-04-17] MEDS: LORazepam 2 mg/ml vial IV PRN ×2 (05:51→10:43)
[2020-04-17 06:00] VITALS: BP 110/80
--- NOTE | 2020-04-17 06:37 | NUR ---
Problems reprioritized. Patient report given, questions answered & plan of care reviewed with Cinthya LOUIS- Informed of need to place COLLINS maliha- & message to pharm of need for protonix 0600- Salena empty messge sent to pharm.
--- NOTE | 2020-04-17 06:56 | NUR ---
Patient in room PCU 3015. I have received report from MISSY Marquez and had the opportunity to ask questions and assume patient care.
[2020-04-17] MEDS: levoFLOXACIN-Levaquin 500mg/D5 100 ML IV SCH (07:50)
[2020-04-17] MEDS: folic acid 1mg tablet PO SCH (07:53)
[2020-04-17] MEDS: spironolactone 25 MG tablet PO SCH ×2 (07:54→20:42)
[2020-04-17] MEDS: lactobacillus rhamnosus 10,000 MMU CELLS/CAPSULE PO SCH ×2 (07:54→20:36)
[2020-04-17] MEDS: MULTIVIT-MIN/FERROUS GLUCONATE 9 MG/15 ML LIQUID PO SCH (07:54)
[2020-04-17] MEDS: midodrine 5mg tablet PO SCH ×3 (07:54→20:43)
[2020-04-17] MEDS: thiamine 100mg tablet PO SCH (07:54)
[2020-04-17] MEDS: oxybutynin 5mg tablet PO SCH ×2 (07:54→20:43)
[2020-04-17] MEDS: K and/or MAG REPLACEMENT MC SCH ×4 (08:00→20:00)
[2020-04-17 08:18] LABS: MAGNESIUM 1.5 MG/DL (1.5-2.4); POTASSIUM 3.8 MMOL/L (3.5-5.1)
[2020-04-17 09:26] LABS: BASOPHILS # (AUTO) 0.1 X10'3 (0-0.2); EOSINOPHILS % (AUTO) 0.3 % (0-6); HEMATOCRIT 27.5 % (42.0-52.0); HEMOGLOBIN 8.7 g/dl (14.0-17.9); LYMPHOCYTES # (AUTO) 0.6 X10'3 (1.1-4.8); LYMPHOCYTES % (AUTO) 6.4 % (21-51); MEAN CORPUSCULAR HEMOGLOBIN 33.4 PG (27.0-31.0); MEAN CORPUSCULAR HGB CONC 31.7 g/dL (33.0-36.5); MEAN CORPUSCULAR VOLUME 105.6 FL (78-98); MEAN PLATELET VOLUME 8.1 FL (7.4-10.4); MONOCYTES # (AUTO) 0.6 X10'3 (0-0.9); MONOCYTES % (AUTO) 5.9 % (2-12); NEUTROPHILS # (AUTO) 8.4 X10'3 (1.8-7.7); NEUTROPHILS % (AUTO) 86.4 % (42-75); PLATELET COUNT 82 X10'3 (140-440); RED CELL DISTRIBUTION WIDTH 27.4 % (11.5-14.5); WHITE BLOOD COUNT 9.7 X10'3 (4.5-11.0)
[2020-04-17 09:37] LABS: ALANINE AMINOTRANSFERASE 56 U/L (12-78); ALBUMIN 1.6 G/DL (3.4-5.0); ALKALINE PHOSPHATASE 146 IU/L (46-116); ANION GAP 10 (8-16); ASPARTATE AMINO TRANSFERASE 122 U/L (10-37); BLOOD UREA NITROGEN 27 MG/DL (7-18); BUN/CREATININE RATIO 21.3 (5.4-32.0); CALCIUM 8.5 MG/DL (8.5-10.1); CHLORIDE 116 MMOL/L (99-107); CREATININE 1.27 MG/DL (0.60-1.10); GLUCOSE 134 MG/DL (70-104); POTASSIUM 3.5 MMOL/L (3.5-5.1); SODIUM 148 MMOL/L (135-145); TOTAL CARBON DIOXIDE 22.5 MMOL/L (24-32); eGFR 58 ML/MIN
[2020-04-17 09:39] LABS: ALBUMIN/GLOBULIN RATIO 0.3 (1.1-1.5); TOTAL PROTEIN 6.4 G/DL (6.4-8.2)
[2020-04-17 09:51] LABS: ANISOCYTOSIS 3+; PLATELET ESTIMATE DECREASED
[2020-04-17 09:53] LABS: BURR CELLS FEW
--- NOTE | 2020-04-17 10:25 | NUR ---
18F Mclain cath placed. pt had one inc void. bladder scan showed 400ml post void. pt tolerated procedure well.
[2020-04-17 11:00] VITALS: BP 93/56
[2020-04-17] MEDS ORDERED: furosemide 40mg/4ml inj IV ONE (12:40)
[2020-04-17] MEDS: dextrose 5%-water 1,000 ML IV SCH (13:22)
[2020-04-17 15:00] VITALS: BP 132/76
[2020-04-17] MEDS: morphine 2 MG/ML inj. syringe IV PRN ×2 (17:10→23:49)
[2020-04-17 18:00] VITALS: BP 109/67
--- NOTE | 2020-04-17 18:30 | NUR ---
Patient in room PCU 3015. I have received report from Cinthya LOUIS and had the opportunity to ask questions and assume patient care.
--- NOTE | 2020-04-17 18:43 | NUR ---
Problems reprioritized. Patient report given, questions answered & plan of care reviewed with MISSY Moseley. Pt more alert and coherent this shitf. Mclain Cath and rectal tube in place.
[2020-04-17] MEDS: haloperidol 5mg tablet PO PRN (20:46)
[2020-04-17 22:00] VITALS: BP 125/85
[2020-04-18] VITALS (22 sets, daily range): BP systolic 109–135; BP diastolic 45–80
--- NOTE | 2020-04-18 00:45 | NUR ---
Page Sent PAGER ID: [phone] MESSAGE: #[id number] Cesar Madison In Afib with bursts of RVR HR 130+ and staying #[phone] Abraham
[2020-04-18] MEDS ORDERED: diltiazem 5mg/ml 5ml inj. IV ONE (00:50)
[2020-04-18] MEDS: pantoprazole 40MG/NS 100ML BAG 100 ML IV SCH ×5 (01:07→21:18)
[2020-04-18] MEDS: diltiazem-NS 100mg/100ml 100 ML IV SCH ×2 (01:08→17:28)
[2020-04-18] MEDS: lactulose 20gm/30ml cup PO SCH ×4 (02:00→20:00)
--- NOTE | 2020-04-18 02:30 | NUR ---
pts Дмитрий called for update- RN reviewed changes, very pleasant person
--- NOTE | 2020-04-18 06:49 | NUR ---
Problems reprioritized. Patient report given, questions answered & plan of care reviewed with Robson LOUIS.
[2020-04-18 07:24] LABS: BASOPHILS # (AUTO) 0.1 X10'3 (0-0.2); BASOPHILS % (AUTO) 0.7 % (0-1); EOSINOPHILS % (AUTO) 0.2 % (0-6); HEMATOCRIT 25.4 % (42.0-52.0); HEMOGLOBIN 8.2 g/dl (14.0-17.9); LYMPHOCYTES # (AUTO) 0.6 X10'3 (1.1-4.8); MEAN CORPUSCULAR HEMOGLOBIN 33.8 PG (27.0-31.0); MEAN CORPUSCULAR HGB CONC 32.1 g/dL (33.0-36.5); MEAN CORPUSCULAR VOLUME 105.2 FL (78-98); MEAN PLATELET VOLUME 8.5 FL (7.4-10.4); MONOCYTES % (AUTO) 8.1 % (2-12); NEUTROPHILS # (AUTO) 10.4 X10'3 (1.8-7.7); PLATELET COUNT 77 X10'3 (140-440); RED BLOOD COUNT 2.41 X10'6 (4.70-6.10); RED CELL DISTRIBUTION WIDTH 26.7 % (11.5-14.5); WHITE BLOOD COUNT 12.1 X10'3 (4.5-11.0)
[2020-04-18] MEDS: spironolactone 25 MG tablet PO SCH ×2 (07:41→21:17)
[2020-04-18] MEDS: oxybutynin 5mg tablet PO SCH ×2 (07:41→21:17)
[2020-04-18] MEDS: midodrine 5mg tablet PO SCH ×3 (07:41→21:00)
[2020-04-18] MEDS: thiamine 100mg tablet PO SCH (07:41)
[2020-04-18] MEDS: lactobacillus rhamnosus 10,000 MMU CELLS/CAPSULE PO SCH ×2 (07:41→21:16)
[2020-04-18] MEDS: folic acid 1mg tablet PO SCH (07:41)
[2020-04-18] MEDS: furosemide 40mg/4ml inj IV SCH (07:42)
[2020-04-18] MEDS: MULTIVIT-MIN/FERROUS GLUCONATE 9 MG/15 ML LIQUID PO SCH (07:42)
[2020-04-18 07:43] LABS: ALANINE AMINOTRANSFERASE 53 U/L (12-78); ALBUMIN 1.5 G/DL (3.4-5.0); ALKALINE PHOSPHATASE 134 IU/L (46-116); ANION GAP 10 (8-16); ASPARTATE AMINO TRANSFERASE 99 U/L (10-37); BILIRUBIN,TOTAL 4.6 MG/DL (0.1-1.0); BLOOD UREA NITROGEN 29 MG/DL (7-18); CHLORIDE 115 MMOL/L (99-107); CREATININE 1.26 MG/DL (0.60-1.10); GLUCOSE 118 MG/DL (70-104); MAGNESIUM 1.5 MG/DL (1.5-2.4); POTASSIUM 3.6 MMOL/L (3.5-5.1); SODIUM 147 MMOL/L (135-145); TOTAL CARBON DIOXIDE 22.4 MMOL/L (24-32); eGFR 59 ML/MIN
[2020-04-18 07:49] LABS: ALBUMIN/GLOBULIN RATIO 0.3 (1.1-1.5); TOTAL PROTEIN 6.2 G/DL (6.4-8.2)
--- NOTE | 2020-04-18 15:57 | NUR ---
Reassessment: PO intake has greatly improved to 50% with pureed diet, thick liquids. Likely will continue to improve. Rec: 1. continue pureed/nectar thick diet w/ feeder per BUILDING OPERATOR/MD; encourage PO 2. thiamin, folic, MVI for etoh 3. routine bowel care; lactulose for elevated ammonia per MD 4. scaled wt this admit Addendum: 04/18/20 at [address] Amended: Links added.
[2020-04-18] MEDS: levoFLOXACIN 500mg tablet PO SCH (16:01)
--- NOTE | 2020-04-18 18:00 | NUR ---
rounded with Dr. Reynolds in approximately at 0900, SBAR given, aware of afib rvr on and off, stated no need to go up on cardizem.
--- NOTE | 2020-04-18 18:32 | NUR ---
SBAR report given to Bharati LOUIS , emar reviewed, questions answered.
--- NOTE | 2020-04-18 18:36 | NUR ---
Patient in room PCU 3015. I have received report from Robson LOUIS and had the opportunity to ask questions and assume patient care.
[2020-04-18] MEDS: K and/or MAG REPLACEMENT MC SCH ×2 (20:00)
[2020-04-18] MEDS: LORazepam 2 mg/ml vial IV PRN (20:32)
[2020-04-18] MEDS: dextrose 5%-water 1,000 ML IV SCH (21:16)
[2020-04-19] VITALS (8 sets, daily range): BP systolic 91–134; BP diastolic 51–77
[2020-04-19] MEDS: pantoprazole 40MG/NS 100ML BAG 100 ML IV SCH (03:47)
[2020-04-19] MEDS: LORazepam 2 mg/ml vial IV PRN (04:28)
[2020-04-19] MEDS: lactulose 20gm/30ml cup PO SCH ×4 (04:28→20:55)
[2020-04-19] MEDS: dextrose 5%-water 1,000 ML IV SCH (05:57)
[2020-04-19 06:50] LABS: MAGNESIUM 1.5 MG/DL (1.5-2.4); POTASSIUM 3.4 MMOL/L (3.5-5.1)
--- NOTE | 2020-04-19 07:14 | NUR ---
Problems reprioritized. Patient report given, questions answered & plan of care reviewed with Robson LOUIS.
[2020-04-19] MEDS: K and/or MAG REPLACEMENT MC SCH ×4 (08:00→20:00)
[2020-04-19] MEDS: folic acid 1mg tablet PO SCH (08:27)
[2020-04-19] MEDS: midodrine 5mg tablet PO SCH ×3 (08:27→20:55)
[2020-04-19] MEDS: lactobacillus rhamnosus 10,000 MMU CELLS/CAPSULE PO SCH ×2 (08:27→20:55)
[2020-04-19] MEDS: oxybutynin 5mg tablet PO SCH ×2 (08:27→20:56)
[2020-04-19] MEDS: thiamine 100mg tablet PO SCH (08:28)
[2020-04-19] MEDS: furosemide 40mg/4ml inj IV SCH (08:28)
[2020-04-19] MEDS: spironolactone 25 MG tablet PO SCH ×2 (08:28→20:56)
[2020-04-19] MEDS: MULTIVIT-MIN/FERROUS GLUCONATE 9 MG/15 ML LIQUID PO SCH (08:28)
[2020-04-19] MEDS: POTASSIUM BICARB 20meq eff tab 20 MEQ TABLET.EFF PO PRN (08:37)
[2020-04-19] MEDS: levoFLOXACIN 500mg tablet PO SCH (10:33)
[2020-04-19] MEDS: pantoprazole 40mg Tablet.DR PO SCH ×2 (10:33→20:55)
[2020-04-19] MEDS: metoprolol tartrate 25mg tablet PO SCH ×2 (10:34→20:57)
--- NOTE | 2020-04-19 10:57 | NUR ---
Rounded with KARINA Conti given, EMAR reviewed. Stated to start the patient on 20 mg metoprolol bid and d/c cardizem drip in 1 hr, and convert IV protonix to 40 mg po bid.
[2020-04-19] MEDS: diltiazem-NS 100mg/100ml 100 ML IV SCH (16:50)
--- NOTE | 2020-04-19 18:30 | NUR ---
SBAR report given to Natalie LOUIS, EMAR reviewed, questions reviewed.
[2020-04-20] MEDS: lactulose 20gm/30ml cup PO SCH ×2 (01:41→22:15)
[2020-04-20] MEDS: dextrose 5%-water 1,000 ML IV SCH ×2 (02:11→14:02)
--- NOTE | 2020-04-20 06:30 | NUR ---
Patient in room PCU 3015. I have giving report to ender LOUIS and had the opportunity to ask questions and assume patient care.
--- NOTE | 2020-04-20 06:36 | NUR ---
Patient in room PCU 3015. I have received report from Demario LOUIS and had the opportunity to ask questions and assume patient care.
[2020-04-20 07:00] VITALS: BP 98/58
[2020-04-20 07:31] LABS: MAGNESIUM 1.5 MG/DL (1.5-2.4); POTASSIUM 3.3 MMOL/L (3.5-5.1)
[2020-04-20] MEDS: pantoprazole 40mg Tablet.DR PO SCH ×2 (08:00→22:15)
[2020-04-20] MEDS: midodrine 5mg tablet PO SCH ×3 (08:00→22:17)
[2020-04-20] MEDS: oxybutynin 5mg tablet PO SCH ×2 (08:00→22:25)
[2020-04-20] MEDS: K and/or MAG REPLACEMENT MC SCH ×4 (08:00→20:00)
[2020-04-20 08:12] LABS: BASOPHILS # (AUTO) 0.1 X10'3 (0-0.2); BASOPHILS % (AUTO) 0.5 % (0-1); EOSINOPHILS % (AUTO) 0.2 % (0-6); HEMATOCRIT 23.3 % (42.0-52.0); HEMOGLOBIN 7.5 g/dl (14.0-17.9); LYMPHOCYTES # (AUTO) 0.6 X10'3 (1.1-4.8); LYMPHOCYTES % (AUTO) 5.2 % (21-51); MEAN CORPUSCULAR HEMOGLOBIN 33.9 PG (27.0-31.0); MEAN CORPUSCULAR HGB CONC 32.3 g/dL (33.0-36.5); MEAN CORPUSCULAR VOLUME 104.9 FL (78-98); MEAN PLATELET VOLUME 8.9 FL (7.4-10.4); MONOCYTES # (AUTO) 0.8 X10'3 (0-0.9); MONOCYTES % (AUTO) 7.4 % (2-12); NEUTROPHILS # (AUTO) 9.7 X10'3 (1.8-7.7); NEUTROPHILS % (AUTO) 86.7 % (42-75); PLATELET COUNT 81 X10'3 (140-440); RED BLOOD COUNT 2.22 X10'6 (4.70-6.10); RED CELL DISTRIBUTION WIDTH 26.4 % (11.5-14.5); WHITE BLOOD COUNT 11.2 X10'3 (4.5-11.0)
[2020-04-20 08:19] LABS: ANION GAP 10 (8-16); BLOOD UREA NITROGEN 35 MG/DL (7-18); BUN/CREATININE RATIO 24.1 (5.4-32.0); CHLORIDE 114 MMOL/L (99-107); CREATININE 1.45 MG/DL (0.60-1.10); GLUCOSE 108 MG/DL (70-104); SODIUM 145 MMOL/L (135-145); TOTAL CARBON DIOXIDE 21.1 MMOL/L (24-32); eGFR 50 ML/MIN
[2020-04-20 08:20] LABS: ALBUMIN 1.5 G/DL (3.4-5.0); CALCIUM 8.3 MG/DL (8.5-10.1)
[2020-04-20] MEDS: MULTIVIT-MIN/FERROUS GLUCONATE 9 MG/15 ML LIQUID PO SCH (09:24)
[2020-04-20] MEDS: lactobacillus rhamnosus 10,000 MMU CELLS/CAPSULE PO SCH ×2 (09:24→22:16)
[2020-04-20] MEDS: thiamine 100mg tablet PO SCH (09:24)
[2020-04-20] MEDS: furosemide 40mg/4ml inj IV SCH (09:24)
[2020-04-20 09:25] LABS: ANISOCYTOSIS 3+; PLATELET ESTIMATE DECREASED
[2020-04-20] MEDS: folic acid 1mg tablet PO SCH (09:25)
[2020-04-20] MEDS: spironolactone 25 MG tablet PO SCH ×2 (09:25→22:16)
[2020-04-20 09:26] LABS: HYPOCHROMASIA 1+; POLYCHROMASIA FEW
[2020-04-20] MEDS: metoprolol tartrate 25mg tablet PO SCH ×2 (09:32→22:15)
[2020-04-20 11:00] VITALS: BP 117/57
[2020-04-20] MEDS ORDERED: potassium Cl 40MEQ/1/2NS 520ml 520 ML IV PRN ×2 (11:35)
[2020-04-20] MEDS ORDERED: potassium Cl 20 mEq SR tablet PO PRN (11:35)
[2020-04-20] MEDS: potassium Cl 20 mEq SR tablet PO PRN ×3 (12:04→22:16)
[2020-04-20] MEDS: levoFLOXACIN 500mg tablet PO SCH (12:04)
[2020-04-20] MEDS: diltiazem-NS 100mg/100ml 100 ML IV SCH (12:50)
[2020-04-20 15:00] VITALS: BP 96/61
[2020-04-20 18:00] VITALS: BP 119/61
--- NOTE | 2020-04-20 18:33 | NUR ---
Problems reprioritized. Patient report given, questions answered & plan of care reviewed with Demario LOUIS.
[2020-04-20 22:00] VITALS: BP 103/73
[2020-04-21] VITALS (7 sets, daily range): BP systolic 91–116; BP diastolic 51–65
--- NOTE | 2020-04-21 06:31 | NUR ---
Problems reprioritized. Patient report given, questions answered & plan of care reviewed with Balbina LOUIS.
--- NOTE | 2020-04-21 07:31 | NUR ---
PAGER ID: [phone] MESSAGE: [id number] Los no labs or ptt ordered, liver bx today? [phone] KIRBY
[2020-04-21] MEDS: midodrine 5mg tablet PO SCH ×4 (08:00→21:04)
[2020-04-21] MEDS: K and/or MAG REPLACEMENT MC SCH ×3 (08:00→20:00)
[2020-04-21 08:12] LABS: BASOPHILS % (AUTO) 0.2 % (0-1); EOSINOPHILS # (AUTO) 0.1 X10'3 (0-0.9); EOSINOPHILS % (AUTO) 0.8 % (0-6); HEMATOCRIT 23.8 % (42.0-52.0); HEMOGLOBIN 7.8 g/dl (14.0-17.9); LYMPHOCYTES # (AUTO) 0.5 X10'3 (1.1-4.8); LYMPHOCYTES % (AUTO) 6.1 % (21-51); MEAN CORPUSCULAR HEMOGLOBIN 34.6 PG (27.0-31.0); MEAN CORPUSCULAR HGB CONC 32.6 g/dL (33.0-36.5); MEAN PLATELET VOLUME 8.7 FL (7.4-10.4); MONOCYTES # (AUTO) 0.7 X10'3 (0-0.9); MONOCYTES % (AUTO) 8.8 % (2-12); NEUTROPHILS # (AUTO) 7.1 X10'3 (1.8-7.7); NEUTROPHILS % (AUTO) 84.1 % (42-75); PLATELET COUNT 89 X10'3 (140-440); RED BLOOD COUNT 2.25 X10'6 (4.70-6.10); RED CELL DISTRIBUTION WIDTH 26.8 % (11.5-14.5); WHITE BLOOD COUNT 8.4 X10'3 (4.5-11.0)
[2020-04-21 08:16] LABS: ALANINE AMINOTRANSFERASE 68 U/L (12-78); ALBUMIN 1.5 G/DL (3.4-5.0); ALKALINE PHOSPHATASE 136 IU/L (46-116); ANION GAP 9 (8-16); ASPARTATE AMINO TRANSFERASE 136 U/L (10-37); BILIRUBIN,TOTAL 3.4 MG/DL (0.1-1.0); BLOOD UREA NITROGEN 35 MG/DL (7-18); BUN/CREATININE RATIO 26.9 (5.4-32.0); CALCIUM 8.2 MG/DL (8.5-10.1); CHLORIDE 114 MMOL/L (99-107); GLUCOSE 107 MG/DL (70-104); POTASSIUM 3.8 MMOL/L (3.5-5.1); SODIUM 144 MMOL/L (135-145); TOTAL CARBON DIOXIDE 21.5 MMOL/L (24-32); eGFR 57 ML/MIN
[2020-04-21 08:17] LABS: ALBUMIN/GLOBULIN RATIO 0.3 (1.1-1.5); TOTAL PROTEIN 6.3 G/DL (6.4-8.2)
[2020-04-21 10:37] LABS: ANISOCYTOSIS 3+; HYPOCHROMASIA 1+; PLATELET ESTIMATE DECREASED
[2020-04-21 10:38] LABS: POLYCHROMASIA 1+
[2020-04-21] MEDS: lactulose 20gm/30ml cup PO SCH ×2 (13:18→20:59)
[2020-04-21] MEDS: MULTIVIT-MIN/FERROUS GLUCONATE 9 MG/15 ML LIQUID PO SCH (13:18)
[2020-04-21] MEDS: folic acid 1mg tablet PO SCH (13:23)
[2020-04-21] MEDS: pantoprazole 40mg Tablet.DR PO SCH ×2 (13:23→20:59)
[2020-04-21] MEDS: thiamine 100mg tablet PO SCH (13:25)
[2020-04-21] MEDS: oxybutynin 5mg tablet PO SCH ×2 (13:26→20:58)
[2020-04-21] MEDS: spironolactone 25 MG tablet PO SCH ×2 (13:26→20:58)
[2020-04-21] MEDS: lactobacillus rhamnosus 10,000 MMU CELLS/CAPSULE PO SCH ×2 (13:27→20:58)
[2020-04-21] MEDS: metoprolol tartrate 25mg tablet PO SCH ×2 (13:30→20:59)
[2020-04-21] MEDS: furosemide 40mg/4ml inj IV SCH (13:35)
[2020-04-21] MEDS: levoFLOXACIN 500mg tablet PO SCH (13:49)
[2020-04-21 15:02] LABS: PHOSPHORUS 3.9 MG/DL (2.3-4.5)
--- NOTE | 2020-04-21 15:40 | NUR ---
Spoke with , update given re patient status and liver bx cancelled. PT will work with patient again tomorrow. is primary caregiver with home health. She isnt sure she will be able to safely care for him at home without rehab first.
--- NOTE | 2020-04-21 15:48 | NUR ---
F/u 04/21: Pt PO continues to fluctuate 25-49% avg pureed/nectar thick meals w/ feeder per LATHMAKER recs. AOx1 receiving thiamin, folic, MVI for etoh and Q12 lactulose w/ rectal tube present per EMR. Pt has consistent liquid stools w/ volume not noted but last documented 800ml 04/17; Phos is WNL today. Pt would benefit from nectar thick ensure enlive TIDWM for additional protein/kcals; MD notified. Will trial magic cup WL as well; dietary notified. Will continue to monitor for additional protein/kcal needs. Rec: 1. continue pureed/nectar thick diet w/ feeder per LATHMAKER/MD; encourage PO 2. nectar thick ensure enlive TIDWM; magic cup WL for additional kcals/protein 3. thiamin, folic, MVI for etoh 4. lactulose Q12 for elevated ammonia per MD 5. scaled wt this admit; weekly wts following Addendum: 04/21/20 at [address] Amended: Links added.
[2020-04-21] MEDS: dextrose 5%-water 1,000 ML IV SCH (19:43)
[2020-04-22] VITALS (7 sets, daily range): BP systolic 88–128; BP diastolic 51–100
[2020-04-22] MEDS: LORazepam 2 mg/ml vial IV PRN (02:38)
--- NOTE | 2020-04-22 06:25 | NUR ---
Patient in room PCU 3015. I have received report from Abelino LOUIS and had the opportunity to ask questions and assume patient care.
[2020-04-22] MEDS: K and/or MAG REPLACEMENT MC SCH ×2 (08:00→20:00)
[2020-04-22] MEDS: lactulose 20gm/30ml cup PO SCH ×2 (08:27→20:51)
[2020-04-22] MEDS: MULTIVIT-MIN/FERROUS GLUCONATE 9 MG/15 ML LIQUID PO SCH (08:27)
[2020-04-22] MEDS: spironolactone 25 MG tablet PO SCH ×2 (08:29→20:51)
[2020-04-22] MEDS: midodrine 5mg tablet PO SCH ×3 (08:30→20:50)
[2020-04-22] MEDS: folic acid 1mg tablet PO SCH (08:30)
[2020-04-22] MEDS: lactobacillus rhamnosus 10,000 MMU CELLS/CAPSULE PO SCH ×2 (08:30→20:50)
[2020-04-22] MEDS: thiamine 100mg tablet PO SCH (08:30)
[2020-04-22] MEDS: oxybutynin 5mg tablet PO SCH ×2 (08:30→20:50)
[2020-04-22] MEDS: pantoprazole 40mg Tablet.DR PO SCH ×2 (08:30→20:50)
[2020-04-22] MEDS: furosemide 40mg/4ml inj IV SCH (08:32)
[2020-04-22] MEDS: metoprolol tartrate 25mg tablet PO SCH ×2 (08:38→20:00)
[2020-04-22 10:41] LABS: BASOPHILS % (AUTO) 0.5 % (0-1); EOSINOPHILS # (AUTO) 0.1 X10'3 (0-0.9); EOSINOPHILS % (AUTO) 0.7 % (0-6); HEMATOCRIT 24.9 % (42.0-52.0); LYMPHOCYTES # (AUTO) 0.5 X10'3 (1.1-4.8); LYMPHOCYTES % (AUTO) 5.5 % (21-51); MEAN CORPUSCULAR HEMOGLOBIN 34.4 PG (27.0-31.0); MEAN CORPUSCULAR HGB CONC 32.2 g/dL (33.0-36.5); MEAN CORPUSCULAR VOLUME 106.7 FL (78-98); MEAN PLATELET VOLUME 8.3 FL (7.4-10.4); MONOCYTES # (AUTO) 0.7 X10'3 (0-0.9); MONOCYTES % (AUTO) 7.8 % (2-12); NEUTROPHILS # (AUTO) 8.1 X10'3 (1.8-7.7); NEUTROPHILS % (AUTO) 85.5 % (42-75); PLATELET COUNT 111 X10'3 (140-440); RED BLOOD COUNT 2.33 X10'6 (4.70-6.10); RED CELL DISTRIBUTION WIDTH 26.4 % (11.5-14.5); WHITE BLOOD COUNT 9.5 X10'3 (4.5-11.0)
[2020-04-22 10:54] LABS: ALANINE AMINOTRANSFERASE 69 U/L (12-78); ALBUMIN 1.5 G/DL (3.4-5.0); ALKALINE PHOSPHATASE 145 IU/L (46-116); ANION GAP 9 (8-16); ASPARTATE AMINO TRANSFERASE 138 U/L (10-37); BILIRUBIN,TOTAL 3.2 MG/DL (0.1-1.0); BLOOD UREA NITROGEN 32 MG/DL (7-18); BUN/CREATININE RATIO 23.5 (5.4-32.0); CALCIUM 8.2 MG/DL (8.5-10.1); CHLORIDE 113 MMOL/L (99-107); CREATININE 1.36 MG/DL (0.60-1.10); GLUCOSE 126 MG/DL (70-104); POTASSIUM 3.9 MMOL/L (3.5-5.1); SODIUM 145 MMOL/L (135-145); TOTAL CARBON DIOXIDE 22.7 MMOL/L (24-32); eGFR 54 ML/MIN
[2020-04-22 10:55] LABS: ALBUMIN/GLOBULIN RATIO 0.3 (1.1-1.5); TOTAL PROTEIN 6.5 G/DL (6.4-8.2)
[2020-04-22] MEDS: levoFLOXACIN 500mg tablet PO SCH (11:20)
[2020-04-22] MEDS: dextrose 5%-water 1,000 ML IV SCH (14:21)
--- NOTE | 2020-04-22 18:13 | NUR ---
Problems reprioritized. Patient report given, questions answered & plan of care reviewed with Diamante LOUIS.
--- NOTE | 2020-04-22 21:21 | NUR ---
RN assessed patient and rectal tube is leaking. RN assessed rectal tube and balloon of rectal tube was filled with approximately 20 mL of air once the balloon was deflated. Upon assessing the rectal tube further the stool was creamy and thick and did not appear to be adequate for the rectal tube. Patient also had some new breakdown to his sacrum. aquatic laborer aware and came bedside. Pictures taken and placed in chart. Rectal tube d/c at this time due to findings.
[2020-04-23 02:00] VITALS: BP_SYST 111; BP_DIAS 70; BP_DIAS 74
[2020-04-23 06:00] VITALS: BP 107/71
[2020-04-23 06:26] LABS: BASOPHILS # (AUTO) 0.1 X10'3 (0-0.2); BASOPHILS % (AUTO) 0.5 % (0-1); EOSINOPHILS # (AUTO) 0.1 X10'3 (0-0.9); EOSINOPHILS % (AUTO) 0.6 % (0-6); HEMOGLOBIN 7.8 g/dl (14.0-17.9); LYMPHOCYTES # (AUTO) 0.7 X10'3 (1.1-4.8); LYMPHOCYTES % (AUTO) 5.8 % (21-51); MEAN CORPUSCULAR HEMOGLOBIN 34.1 PG (27.0-31.0); MEAN CORPUSCULAR HGB CONC 32.5 g/dL (33.0-36.5); MEAN CORPUSCULAR VOLUME 105.1 FL (78-98); MEAN PLATELET VOLUME 8.2 FL (7.4-10.4); MONOCYTES # (AUTO) 0.8 X10'3 (0-0.9); MONOCYTES % (AUTO) 6.6 % (2-12); NEUTROPHILS # (AUTO) 10.4 X10'3 (1.8-7.7); NEUTROPHILS % (AUTO) 86.5 % (42-75); PLATELET COUNT 130 X10'3 (140-440); RED BLOOD COUNT 2.29 X10'6 (4.70-6.10); RED CELL DISTRIBUTION WIDTH 25.8 % (11.5-14.5)
--- NOTE | 2020-04-23 06:34 | NUR ---
Patient in room PCU 3015. I have received report from Diamante LOUIS and had the opportunity to ask questions and assume patient care.
[2020-04-23 06:45] LABS: ALANINE AMINOTRANSFERASE 72 U/L (12-78); ALBUMIN 1.5 G/DL (3.4-5.0); ALKALINE PHOSPHATASE 146 IU/L (46-116); ANION GAP 10 (8-16); ASPARTATE AMINO TRANSFERASE 125 U/L (10-37); BILIRUBIN,TOTAL 3.5 MG/DL (0.1-1.0); BLOOD UREA NITROGEN 33 MG/DL (7-18); BUN/CREATININE RATIO 23.9 (5.4-32.0); CALCIUM 8.4 MG/DL (8.5-10.1); CHLORIDE 109 MMOL/L (99-107); CREATININE 1.38 MG/DL (0.60-1.10); GLUCOSE 111 MG/DL (70-104); POTASSIUM 3.8 MMOL/L (3.5-5.1); SODIUM 140 MMOL/L (135-145); TOTAL CARBON DIOXIDE 20.9 MMOL/L (24-32); eGFR 53 ML/MIN
[2020-04-23 06:49] LABS: ALBUMIN/GLOBULIN RATIO 0.3 (1.1-1.5); TOTAL PROTEIN 6.6 G/DL (6.4-8.2)
[2020-04-23] MEDS: K and/or MAG REPLACEMENT MC SCH (08:00)
[2020-04-23] MEDS: dextrose 5%-water 1,000 ML IV SCH (09:05)
[2020-04-23] MEDS: lactulose 20gm/30ml cup PO SCH ×2 (09:07→21:09)
[2020-04-23] MEDS: thiamine 100mg tablet PO SCH (09:07)
[2020-04-23] MEDS: MULTIVIT-MIN/FERROUS GLUCONATE 9 MG/15 ML LIQUID PO SCH (09:07)
[2020-04-23] MEDS: furosemide 40mg/4ml inj IV SCH (09:08)
[2020-04-23] MEDS: spironolactone 25 MG tablet PO SCH (09:08)
[2020-04-23] MEDS: metoprolol tartrate 25mg tablet PO SCH ×2 (09:08→21:08)
[2020-04-23] MEDS: oxybutynin 5mg tablet PO SCH ×2 (09:09→21:07)
[2020-04-23] MEDS: folic acid 1mg tablet PO SCH (09:09)
[2020-04-23] MEDS: midodrine 5mg tablet PO SCH ×3 (09:09→21:08)
[2020-04-23] MEDS: lactobacillus rhamnosus 10,000 MMU CELLS/CAPSULE PO SCH ×2 (09:09→21:07)
[2020-04-23] MEDS: pantoprazole 40mg Tablet.DR PO SCH ×2 (09:09→21:08)
[2020-04-23 10:40] LABS: LARGE PLATELETS FEW; PLATELET ESTIMATE DECREASED
[2020-04-23 10:41] LABS: ANISOCYTOSIS 3+; SCHISTOCYTES FEW
[2020-04-23 10:42] LABS: HYPOCHROMASIA 1+
[2020-04-23] MEDS: CefTRIAXone/D5W-Rocephin 1gm 50 ML IV SCH (10:45)
[2020-04-23 11:00] VITALS: BP 113/62
[2020-04-23 15:00] VITALS: BP 148/76
[2020-04-23 18:00] VITALS: BP 111/57
--- NOTE | 2020-04-23 18:27 | NUR ---
Problems reprioritized. Patient report given, questions answered & plan of care reviewed with Jacky LOUIS. Patient stable at transfer of care.
[2020-04-23] MEDS ORDERED: metoprolol tartrate 25mg tablet PO SCH (20:00)
[2020-04-23] MEDS: furosemide 20MG tablet PO SCH (21:17)
[2020-04-23 22:00] VITALS: BP 90/51
[2020-04-24 02:00] VITALS: BP 97/50
[2020-04-24] MEDS: dextrose 5%-water 1,000 ML IV SCH (05:57)
--- NOTE | 2020-04-24 06:39 | NUR ---
Patient in room PCU 3014R. I have received report from MISSY LYN and had the opportunity to ask questions and assume patient care.
[2020-04-24 07:00] VITALS: BP 93/53
[2020-04-24 07:43] LABS: BASOPHILS % (AUTO) 0.6 % (0-1); EOSINOPHILS # (AUTO) 0.2 X10'3 (0-0.9); EOSINOPHILS % (AUTO) 1.9 % (0-6); HEMATOCRIT 22.7 % (42.0-52.0); HEMOGLOBIN 7.5 g/dl (14.0-17.9); LYMPHOCYTES # (AUTO) 0.6 X10'3 (1.1-4.8); MEAN CORPUSCULAR HEMOGLOBIN 35.3 PG (27.0-31.0); MEAN CORPUSCULAR HGB CONC 33.2 g/dL (33.0-36.5); MEAN CORPUSCULAR VOLUME 106.3 FL (78-98); MEAN PLATELET VOLUME 8.2 FL (7.4-10.4); MONOCYTES # (AUTO) 0.6 X10'3 (0-0.9); MONOCYTES % (AUTO) 7.5 % (2-12); NEUTROPHILS # (AUTO) 6.8 X10'3 (1.8-7.7); PLATELET COUNT 114 X10'3 (140-440); RED BLOOD COUNT 2.14 X10'6 (4.70-6.10); RED CELL DISTRIBUTION WIDTH 24.7 % (11.5-14.5); WHITE BLOOD COUNT 8.2 X10'3 (4.5-11.0)
[2020-04-24 07:58] LABS: ALANINE AMINOTRANSFERASE 63 U/L (12-78); ALBUMIN 1.4 G/DL (3.4-5.0); ALBUMIN/GLOBULIN RATIO 0.3 (1.1-1.5); ALKALINE PHOSPHATASE 134 IU/L (46-116); ANION GAP 8 (8-16); ASPARTATE AMINO TRANSFERASE 108 U/L (10-37); BILIRUBIN,TOTAL 2.8 MG/DL (0.1-1.0); BLOOD UREA NITROGEN 28 MG/DL (7-18); BUN/CREATININE RATIO 24.3 (5.4-32.0); CHLORIDE 108 MMOL/L (99-107); CREATININE 1.15 MG/DL (0.60-1.10); GLUCOSE 95 MG/DL (70-104); POTASSIUM 3.8 MMOL/L (3.5-5.1); SODIUM 139 MMOL/L (135-145); TOTAL CARBON DIOXIDE 22.9 MMOL/L (24-32); eGFR 66 ML/MIN
[2020-04-24] MEDS: metoprolol tartrate 25mg tablet PO SCH (08:00)
[2020-04-24] MEDS: CefTRIAXone/D5W-Rocephin 1gm 50 ML IV SCH (08:00)
[2020-04-24] MEDS: thiamine 100mg tablet PO SCH (08:00)
[2020-04-24] MEDS: lactobacillus rhamnosus 10,000 MMU CELLS/CAPSULE PO SCH ×2 (08:00→21:24)
[2020-04-24] MEDS: folic acid 1mg tablet PO SCH (08:00)
[2020-04-24] MEDS: furosemide 20MG tablet PO SCH ×2 (08:00→21:24)
[2020-04-24] MEDS: pantoprazole 40mg Tablet.DR PO SCH ×2 (08:00→21:23)
[2020-04-24] MEDS: midodrine 5mg tablet PO SCH ×3 (08:00→21:25)
[2020-04-24] MEDS: lactulose 20gm/30ml cup PO SCH ×2 (08:00→21:25)
[2020-04-24] MEDS: oxybutynin 5mg tablet PO SCH ×2 (08:00→21:25)
[2020-04-24] MEDS: K and/or MAG REPLACEMENT MC SCH (08:00)
[2020-04-24] MEDS: MULTIVIT-MIN/FERROUS GLUCONATE 9 MG/15 ML LIQUID PO SCH (08:00)
[2020-04-24 11:00] VITALS: BP 101/73
[2020-04-24 15:00] VITALS: BP 103/58
--- NOTE | 2020-04-24 15:29 | NUR ---
F/u 04/24: Pt PO remains poor ~25% avg meals fluctuating which is improvement from initial refusing all meals first 5 days of admit but still not close to meeting nutrient needs past 13 days this admit. Pt was advanced to MM5/thin diet w/ feeder per FILENET DEVELOPER recs from prior pureed/nectar thick liquids. RN reports pt PO did improve to 50% avg meals today w/ present during meal times. CHARMAINE d/w RN regarding ensure enlives TIDWM if MD agreeable since RD recommended ensure enlive has yet to be verified by MD in EMR so unable to send. Will send ensure pudding TIDWM in place of prior magic cup since now on thin liquids for additional kcals; dietary notified. Rectal tube in place receiving lactulose w/ last stool volume documented 04/16. Will continue to monitor for PO/ONS acceptance and additional protein/kcal needs this admit. Rec: 1. continue minced and moist/thin diet w/ feeder per FILENET DEVELOPER/MD; encourage PO 2. ensure pudding TIDWM; ensure enlive TIDWM once verified by MD in EMR 3. thiamin, folic, MVI for etoh 4. lactulose Q12 for elevated ammonia per MD 5. scaled wt this admit; weekly wts following Addendum: 04/24/20 at [address] Amended: Links added.
--- NOTE | 2020-04-24 17:24 | NUR ---
MIDODRINE NOT GIVEN DUE TO MORNING DOSE GIVEN LATE NOW IS TOO LATE TO GIVE
--- NOTE | 2020-04-24 18:24 | NUR ---
Problems reprioritized. Patient report given, questions answered & plan of care reviewed with MISSY LYN.
[2020-04-25] MEDS: dextrose 5%-water 1,000 ML IV SCH (04:50)
[2020-04-25 07:02] VITALS: BP 109/61
[2020-04-25 07:02] LABS: BASOPHILS # (AUTO) 0.1 X10'3 (0-0.2); BASOPHILS % (AUTO) 0.6 % (0-1); EOSINOPHILS # (AUTO) 0.1 X10'3 (0-0.9); EOSINOPHILS % (AUTO) 1.3 % (0-6); HEMATOCRIT 23.5 % (42.0-52.0); HEMOGLOBIN 7.8 g/dl (14.0-17.9); LYMPHOCYTES # (AUTO) 0.6 X10'3 (1.1-4.8); LYMPHOCYTES % (AUTO) 6.8 % (21-51); MEAN CORPUSCULAR HEMOGLOBIN 34.9 PG (27.0-31.0); MEAN CORPUSCULAR HGB CONC 33.2 g/dL (33.0-36.5); MEAN CORPUSCULAR VOLUME 105.1 FL (78-98); MONOCYTES # (AUTO) 0.7 X10'3 (0-0.9); MONOCYTES % (AUTO) 8.4 % (2-12); NEUTROPHILS # (AUTO) 7.1 X10'3 (1.8-7.7); NEUTROPHILS % (AUTO) 82.9 % (42-75); PLATELET COUNT 136 X10'3 (140-440); RED BLOOD COUNT 2.24 X10'6 (4.70-6.10); RED CELL DISTRIBUTION WIDTH 24.3 % (11.5-14.5); WHITE BLOOD COUNT 8.6 X10'3 (4.5-11.0)
[2020-04-25 07:27] LABS: ALANINE AMINOTRANSFERASE 75 U/L (12-78); ALBUMIN 1.5 G/DL (3.4-5.0); ALBUMIN/GLOBULIN RATIO 0.3 (1.1-1.5); ALKALINE PHOSPHATASE 147 IU/L (46-116); ANION GAP 10 (8-16); ASPARTATE AMINO TRANSFERASE 138 U/L (10-37); BILIRUBIN,TOTAL 2.6 MG/DL (0.1-1.0); BLOOD UREA NITROGEN 26 MG/DL (7-18); BUN/CREATININE RATIO 21.1 (5.4-32.0); CALCIUM 8.1 MG/DL (8.5-10.1); CHLORIDE 103 MMOL/L (99-107); CREATININE 1.23 MG/DL (0.60-1.10); GLUCOSE 112 MG/DL (70-104); POTASSIUM 3.8 MMOL/L (3.5-5.1); SODIUM 134 MMOL/L (135-145); TOTAL CARBON DIOXIDE 21.3 MMOL/L (24-32); TOTAL PROTEIN 6.4 G/DL (6.4-8.2); eGFR 61 ML/MIN
[2020-04-25] MEDS: thiamine 100mg tablet PO SCH (07:33)
[2020-04-25] MEDS: MULTIVIT-MIN/FERROUS GLUCONATE 9 MG/15 ML LIQUID PO SCH (07:33)
[2020-04-25] MEDS: lactulose 20gm/30ml cup PO SCH ×2 (07:33→21:51)
[2020-04-25] MEDS: folic acid 1mg tablet PO SCH (07:33)
[2020-04-25] MEDS: oxybutynin 5mg tablet PO SCH ×2 (07:34→21:52)
[2020-04-25] MEDS: lactobacillus rhamnosus 10,000 MMU CELLS/CAPSULE PO SCH ×2 (07:34→21:51)
[2020-04-25] MEDS: midodrine 5mg tablet PO SCH ×3 (07:34→21:52)
[2020-04-25] MEDS: furosemide 20MG tablet PO SCH ×2 (07:34→21:52)
[2020-04-25] MEDS: pantoprazole 40mg Tablet.DR PO SCH ×2 (07:34→21:52)
[2020-04-25] MEDS: K and/or MAG REPLACEMENT MC SCH ×2 (08:00→20:00)
[2020-04-25 08:28] LABS: PLATELET ESTIMATE DECREASED
[2020-04-25 08:29] LABS: ANISOCYTOSIS 3+; HYPOCHROMASIA 1+; POLYCHROMASIA 1+; ROULEAUX 1+
[2020-04-25 11:00] VITALS: BP 105/61
[2020-04-25 15:00] VITALS: BP 101/50
--- NOTE | 2020-04-25 16:14 | NUR ---
Dr Ruth paged to advised that patient has been sustaining heart rate 130-150's last bp 109/50 at 4pm no prn bn meds. Awaiting new orders
[2020-04-25 18:00] VITALS: BP 112/62
[2020-04-25 22:00] VITALS: BP 114/65
[2020-04-26] MEDS: LORazepam 2 mg/ml vial IV PRN ×2 (01:30→08:39)
[2020-04-26] MEDS: dextrose 5%-water 1,000 ML IV SCH ×2 (01:31→17:57)
[2020-04-26 02:00] VITALS: BP 109/62
[2020-04-26 06:00] VITALS: BP 113/70
[2020-04-26 06:52] LABS: BASOPHILS # (AUTO) 0.1 X10'3 (0-0.2); BASOPHILS % (AUTO) 0.8 % (0-1); EOSINOPHILS # (AUTO) 0.1 X10'3 (0-0.9); EOSINOPHILS % (AUTO) 1.7 % (0-6); HEMATOCRIT 23.2 % (42.0-52.0); HEMOGLOBIN 7.9 g/dl (14.0-17.9); LYMPHOCYTES # (AUTO) 0.4 X10'3 (1.1-4.8); LYMPHOCYTES % (AUTO) 5.2 % (21-51); MEAN CORPUSCULAR HEMOGLOBIN 35.5 PG (27.0-31.0); MEAN CORPUSCULAR HGB CONC 34.2 g/dL (33.0-36.5); MEAN CORPUSCULAR VOLUME 103.7 FL (78-98); MEAN PLATELET VOLUME 7.6 FL (7.4-10.4); MONOCYTES # (AUTO) 0.6 X10'3 (0-0.9); MONOCYTES % (AUTO) 8.6 % (2-12); NEUTROPHILS # (AUTO) 6.1 X10'3 (1.8-7.7); NEUTROPHILS % (AUTO) 83.7 % (42-75); PLATELET COUNT 142 X10'3 (140-440); RED BLOOD COUNT 2.24 X10'6 (4.70-6.10); RED CELL DISTRIBUTION WIDTH 23.9 % (11.5-14.5); WHITE BLOOD COUNT 7.3 X10'3 (4.5-11.0)
[2020-04-26 07:07] LABS: ALANINE AMINOTRANSFERASE 69 U/L (12-78); ALBUMIN 1.5 G/DL (3.4-5.0); ALBUMIN/GLOBULIN RATIO 0.3 (1.1-1.5); ALKALINE PHOSPHATASE 143 IU/L (46-116); ANION GAP 9 (8-16); ASPARTATE AMINO TRANSFERASE 115 U/L (10-37); BILIRUBIN,TOTAL 2.9 MG/DL (0.1-1.0); BLOOD UREA NITROGEN 23 MG/DL (7-18); CALCIUM 8.4 MG/DL (8.5-10.1); CHLORIDE 102 MMOL/L (99-107); CREATININE 1.21 MG/DL (0.60-1.10); GLUCOSE 110 MG/DL (70-104); POTASSIUM 3.8 MMOL/L (3.5-5.1); SODIUM 134 MMOL/L (135-145); TOTAL CARBON DIOXIDE 23.4 MMOL/L (24-32); TOTAL PROTEIN 6.3 G/DL (6.4-8.2); eGFR 62 ML/MIN
[2020-04-26] MEDS: K and/or MAG REPLACEMENT MC SCH ×2 (08:00→20:00)
[2020-04-26] MEDS: lactobacillus rhamnosus 10,000 MMU CELLS/CAPSULE PO SCH ×2 (08:32→22:26)
[2020-04-26] MEDS: thiamine 100mg tablet PO SCH (08:33)
[2020-04-26] MEDS: midodrine 5mg tablet PO SCH ×3 (08:33→22:26)
[2020-04-26] MEDS: folic acid 1mg tablet PO SCH (08:34)
[2020-04-26] MEDS: oxybutynin 5mg tablet PO SCH ×2 (08:34→22:26)
[2020-04-26] MEDS: furosemide 20MG tablet PO SCH ×2 (08:34→22:26)
[2020-04-26] MEDS: pantoprazole 40mg Tablet.DR PO SCH ×2 (08:35→22:26)
[2020-04-26] MEDS: lactulose 20gm/30ml cup PO SCH ×4 (08:36→22:27)
[2020-04-26] MEDS: MULTIVIT-MIN/FERROUS GLUCONATE 9 MG/15 ML LIQUID PO SCH (08:36)
[2020-04-26 09:33] LABS: ANISOCYTOSIS 3+; LARGE PLATELETS FEW; PLATELET ESTIMATE NORMAL; POLYCHROMASIA FEW; TARGET CELLS FEW
[2020-04-26 09:34] LABS: STOMATOCYTES FEW
[2020-04-26 10:00] VITALS: BP 109/73
--- NOTE | 2020-04-26 10:40 | NUR ---
Dr barry to advise patient heart is back up and sustaining in 150's . bp 109/73 . Awating new orders
--- NOTE | 2020-04-26 13:05 | NUR ---
Spoke with Dr Ruth advised patient heart rate now in 160-170's . Relieved new order for iv Addendum: 04/26/20 at 1306 by Ana Cook RN Received new order for 1 x iv metoprolol
[2020-04-26] MEDS ORDERED: metoprolol tartrate 1mg/ml inj IV ONE (13:10)
[2020-04-26 15:00] VITALS: BP 109/60
[2020-04-26 18:00] VITALS: BP_SYST 108; BP_SYST 113; BP_DIAS 57; BP_DIAS 59
[2020-04-26 22:00] VITALS: BP 164/61
[2020-04-27] VITALS (8 sets, daily range): BP systolic 105–128; BP diastolic 55–69
[2020-04-27] MEDS: lactulose 20gm/30ml cup PO SCH ×4 (00:48→16:00)
[2020-04-27] MEDS: acetaminophen 325mg tablet PO PRN (02:29)
[2020-04-27 06:16] LABS: BASOPHILS % (AUTO) 0.5 % (0-1); EOSINOPHILS % (AUTO) 0.3 % (0-6); HEMATOCRIT 23.3 % (42.0-52.0); HEMOGLOBIN 7.9 g/dl (14.0-17.9); LYMPHOCYTES # (AUTO) 0.5 X10'3 (1.1-4.8); LYMPHOCYTES % (AUTO) 5.9 % (21-51); MEAN CORPUSCULAR HEMOGLOBIN 35.4 PG (27.0-31.0); MEAN CORPUSCULAR VOLUME 104.2 FL (78-98); MEAN PLATELET VOLUME 7.7 FL (7.4-10.4); NEUTROPHILS # (AUTO) 6.1 X10'3 (1.8-7.7); NEUTROPHILS % (AUTO) 80.3 % (42-75); PLATELET COUNT 150 X10'3 (140-440); RED BLOOD COUNT 2.24 X10'6 (4.70-6.10); RED CELL DISTRIBUTION WIDTH 23.3 % (11.5-14.5); WHITE BLOOD COUNT 7.6 X10'3 (4.5-11.0)
[2020-04-27 06:23] LABS: ALANINE AMINOTRANSFERASE 69 U/L (12-78); ALBUMIN 1.5 G/DL (3.4-5.0); ALBUMIN/GLOBULIN RATIO 0.3 (1.1-1.5); ALKALINE PHOSPHATASE 144 IU/L (46-116); ANION GAP 7 (8-16); ASPARTATE AMINO TRANSFERASE 121 U/L (10-37); BILIRUBIN,TOTAL 2.6 MG/DL (0.1-1.0); CALCIUM 8.2 MG/DL (8.5-10.1); CHLORIDE 101 MMOL/L (99-107); CREATININE 1.46 MG/DL (0.60-1.10); GLUCOSE 106 MG/DL (70-104); POTASSIUM 3.9 MMOL/L (3.5-5.1); SODIUM 132 MMOL/L (135-145); TOTAL CARBON DIOXIDE 24.5 MMOL/L (24-32); TOTAL PROTEIN 6.5 G/DL (6.4-8.2); eGFR 50 ML/MIN
[2020-04-27 06:33] LABS: BLOOD UREA NITROGEN 24 MG/DL (7-18); BUN/CREATININE RATIO 16.4 (5.4-32.0)
--- NOTE | 2020-04-27 06:41 | NUR ---
Patient in room PCU 3015. I have received report from Marianela LOUIS and had the opportunity to ask questions and assume patient care.
[2020-04-27] MEDS: K and/or MAG REPLACEMENT MC SCH ×2 (07:04→20:00)
[2020-04-27] MEDS: MULTIVIT-MIN/FERROUS GLUCONATE 9 MG/15 ML LIQUID PO SCH (08:19)
[2020-04-27] MEDS: furosemide 20MG tablet PO SCH ×2 (08:20→21:21)
[2020-04-27] MEDS: folic acid 1mg tablet PO SCH (08:20)
[2020-04-27] MEDS: thiamine 100mg tablet PO SCH (08:20)
[2020-04-27] MEDS: pantoprazole 40mg Tablet.DR PO SCH ×2 (08:20→21:21)
[2020-04-27] MEDS: lactobacillus rhamnosus 10,000 MMU CELLS/CAPSULE PO SCH ×2 (08:20→21:21)
[2020-04-27] MEDS: oxybutynin 5mg tablet PO SCH ×2 (08:20→21:20)
[2020-04-27] MEDS: midodrine 5mg tablet PO SCH ×4 (08:20→21:21)
[2020-04-27] MEDS ORDERED: morphine 2 MG/ML inj. syringe IV PRN (11:55)
--- NOTE | 2020-04-27 12:42 | NUR ---
F/u 04/27: Pt PO ~25-49% most recent meals but continues to fluctuate w/ overall 0-25% past 16 days since admit not meeting needs. ONS yet to be verified in EMR. Pt has ESLD w/ significant ascites -7800ml paracentesis yesterday and ALOC w/ flapping tremors yesterday per MD notes. CM working on home placement w/ hospice per MD note. Ammonia 38 w/ lactulose increased to Q8 w/ stool volume not noted via rectal tube but moderate daily per EMR. Will continue to monitor for changes in code status and additional nutrition needs. Rec: 1. continue minced and moist/thin diet w/ feeder per [employer]ENDANT/MD; encourage PO 2. ensure pudding TIDWM; ensure enlive TIDWM once verified by MD in EMR 3. thiamin, folic, MVI for etoh 4. lactulose Q12 for elevated ammonia per MD 5. scaled wt this admit; weekly wts following 6. monitor for changes in code status Addendum: 04/27/20 at [address] Amended: Links added.
[2020-04-27 13:02] LABS: GLUCOSE,BODY FLUID 119 MG/DL; LDH,BODY FLUID 42 U/L
[2020-04-27 13:13] LABS: LYMPHOCYTES,BODY FLUID 8 %; MONOCYTES,BODY FLUID 90 %; NEUTROPHILS,BODY FLUID 2 %
[2020-04-27 13:14] LABS: BF RBC COUNT 159 /CU MM; BF WBC COUNT 48 /CU MM (0-1000); BFAPPEAR HAZY; BFCOLOR YELLOW; BFVOLUME 60 ML
[2020-04-27 13:15] LABS: BF MESOTHELIAL CELLS MODERATE
[2020-04-27 13:17] LABS: ALBUMIN,BODY FLUID < 0.6 G/DL; TOTAL PROTEIN,BODY FLUID < 2.0 G/DL
[2020-04-27] MEDS: dextrose 5%-water 1,000 ML IV SCH (13:53)
--- NOTE | 2020-04-27 18:23 | NUR ---
Patient in room PCU 3015. I have received report from Farida LOUIS and had the opportunity to ask questions and assume patient care.
[2020-04-28] MEDS: lactulose 20gm/30ml cup PO SCH ×3 (00:46→16:00)
[2020-04-28 02:00] VITALS: BP 120/54
--- NOTE | 2020-04-28 06:45 | NUR ---
Patient in room PCU 3015. I have received report from Farida LOUIS and had the opportunity to ask questions and assume patient care.
--- NOTE | 2020-04-28 06:47 | NUR ---
Patient in room PCU 3015. I have received report from Farida LOUIS and had the opportunity to ask questions and assume patient care.
[2020-04-28 06:56] LABS: BASOPHILS % (AUTO) 0.7 % (0-1); EOSINOPHILS % (AUTO) 0.3 % (0-6); HEMATOCRIT 25.2 % (42.0-52.0); HEMOGLOBIN 8.5 g/dl (14.0-17.9); LYMPHOCYTES # (AUTO) 0.7 X10'3 (1.1-4.8); LYMPHOCYTES % (AUTO) 11.1 % (21-51); MEAN CORPUSCULAR HEMOGLOBIN 34.8 PG (27.0-31.0); MEAN CORPUSCULAR HGB CONC 33.6 g/dL (33.0-36.5); MEAN CORPUSCULAR VOLUME 103.6 FL (78-98); MEAN PLATELET VOLUME 7.6 FL (7.4-10.4); MONOCYTES # (AUTO) 0.5 X10'3 (0-0.9); MONOCYTES % (AUTO) 8.7 % (2-12); NEUTROPHILS # (AUTO) 4.7 X10'3 (1.8-7.7); NEUTROPHILS % (AUTO) 79.2 % (42-75); PLATELET COUNT 150 X10'3 (140-440); RED BLOOD COUNT 2.43 X10'6 (4.70-6.10); RED CELL DISTRIBUTION WIDTH 22.8 % (11.5-14.5); WHITE BLOOD COUNT 5.9 X10'3 (4.5-11.0)
[2020-04-28 07:28] LABS: ANISOCYTOSIS 3+; PLATELET ESTIMATE NORMAL
[2020-04-28 07:33] LABS: ALANINE AMINOTRANSFERASE 59 U/L (12-78); ALBUMIN 1.3 G/DL (3.4-5.0); ALBUMIN/GLOBULIN RATIO 0.3 (1.1-1.5); ALKALINE PHOSPHATASE 136 IU/L (46-116); ANION GAP 9 (8-16); ASPARTATE AMINO TRANSFERASE 111 U/L (10-37); BILIRUBIN,TOTAL 2.1 MG/DL (0.1-1.0); BLOOD UREA NITROGEN 23 MG/DL (7-18); BUN/CREATININE RATIO 19.8 (5.4-32.0); CALCIUM 8.1 MG/DL (8.5-10.1); CHLORIDE 101 MMOL/L (99-107); CREATININE 1.16 MG/DL (0.60-1.10); GLUCOSE 100 MG/DL (70-104); MAGNESIUM 1.5 MG/DL (1.5-2.4); PHOSPHORUS 3.7 MG/DL (2.3-4.5); POTASSIUM 3.4 MMOL/L (3.5-5.1); SODIUM 132 MMOL/L (135-145); TOTAL CARBON DIOXIDE 22.3 MMOL/L (24-32); TOTAL PROTEIN 6.2 G/DL (6.4-8.2); eGFR 65 ML/MIN
[2020-04-28] MEDS: K and/or MAG REPLACEMENT MC SCH ×2 (08:00→20:00)
[2020-04-28] MEDS: midodrine 5mg tablet PO SCH ×3 (08:27→22:24)
[2020-04-28] MEDS: MULTIVIT-MIN/FERROUS GLUCONATE 9 MG/15 ML LIQUID PO SCH (08:27)
[2020-04-28] MEDS: folic acid 1mg tablet PO SCH (08:27)
[2020-04-28] MEDS: lactobacillus rhamnosus 10,000 MMU CELLS/CAPSULE PO SCH ×2 (08:27→20:00)
[2020-04-28] MEDS: oxybutynin 5mg tablet PO SCH ×2 (08:27→20:00)
[2020-04-28] MEDS: thiamine 100mg tablet PO SCH (08:27)
[2020-04-28] MEDS: pantoprazole 40mg Tablet.DR PO SCH ×2 (08:27→20:00)
[2020-04-28] MEDS: dextrose 5%-water 1,000 ML IV SCH (08:27)
[2020-04-28] MEDS: furosemide 20MG tablet PO SCH ×2 (08:27→20:00)
[2020-04-28] MEDS: LORazepam 2 mg/ml vial IV PRN ×2 (08:46→08:48)
[2020-04-28 11:00] VITALS: BP 126/66
[2020-04-28] MEDS ORDERED: morphine 10mg/0.5ml (conc. morphine) oral syringe PO PRN (12:35)
[2020-04-28] MEDS ORDERED: LORazepam 1 MG tablet PO PRN (12:35)
[2020-04-28] MEDS ORDERED: potassium Cl 20 mEq SR tablet PO ONE (12:40)
--- NOTE | 2020-04-28 14:07 | NUR ---
Page Sent to Dr. Ruth promotional table spacer PAGER ID: [phone] MESSAGE: [id number] Los. Pt heart rate trending in high 190s-200s for the last hour BP 120/64 Consuelo [id number]
--- NOTE | 2020-04-28 15:05 | NUR ---
PAGER ID: [phone] MESSAGE: Pt Cesar Madison [id number] HR sustaining in 180s-200. Can we make him comfort care? Or else Zena push? Pls advise, Angela
[2020-04-28 15:55] VITALS: BP 105/57
[2020-04-28] MEDS: acetaminophen 325mg tablet PO PRN (16:14)
--- NOTE | 2020-04-28 16:14 | NUR ---
Pt febrile 101.9 axillary, 650 mg Tylenol given orally per protocol
--- NOTE | 2020-04-28 17:51 | NUR ---
MD aware of high heart rate, no new orders.
[2020-04-28 18:00] VITALS: BP 117/46
--- NOTE | 2020-04-28 18:37 | NUR ---
Problems reprioritized. Patient report given, questions answered & plan of care reviewed with Farida LOUIS.
[2020-04-28 22:00] VITALS: BP 84/41
[2020-04-28] MEDS ORDERED: LACT1CAP26 PO (22:56)
[2020-04-28] MEDS ORDERED: THIA50TA10 PO (22:56)
[2020-04-28] MEDS ORDERED: LACT10SO32 PO (22:56)
[2020-04-29 02:00] VITALS: BP 96/61
[2020-04-29] MEDS: dextrose 5%-water 1,000 ML IV SCH (05:57)
--- NOTE | 2020-04-29 06:31 | NUR ---
Patient in room PCU 3015. I have received report from MISSY Iqbal and had the opportunity to ask questions and assume patient care. Patient asleep in bed and in no acute distress.
[2020-04-29 06:35] LABS: BASOPHILS % (AUTO) 0.4 % (0-1); EOSINOPHILS % (AUTO) 0.1 % (0-6); HEMATOCRIT 26.4 % (42.0-52.0); HEMOGLOBIN 8.7 g/dl (14.0-17.9); LYMPHOCYTES # (AUTO) 0.8 X10'3 (1.1-4.8); LYMPHOCYTES % (AUTO) 9.1 % (21-51); MEAN CORPUSCULAR HEMOGLOBIN 34.4 PG (27.0-31.0); MEAN CORPUSCULAR VOLUME 104.5 FL (78-98); MEAN PLATELET VOLUME 7.6 FL (7.4-10.4); MONOCYTES # (AUTO) 0.5 X10'3 (0-0.9); MONOCYTES % (AUTO) 5.8 % (2-12); NEUTROPHILS # (AUTO) 7.6 X10'3 (1.8-7.7); NEUTROPHILS % (AUTO) 84.6 % (42-75); PLATELET COUNT 142 X10'3 (140-440); RED BLOOD COUNT 2.52 X10'6 (4.70-6.10); RED CELL DISTRIBUTION WIDTH 22.5 % (11.5-14.5); WHITE BLOOD COUNT 8.9 X10'3 (4.5-11.0)
[2020-04-29 06:51] LABS: ALANINE AMINOTRANSFERASE 55 U/L (12-78); ALBUMIN 1.3 G/DL (3.4-5.0); ALBUMIN/GLOBULIN RATIO 0.3 (1.1-1.5); ALKALINE PHOSPHATASE 130 IU/L (46-116); ANION GAP 7 (8-16); ASPARTATE AMINO TRANSFERASE 99 U/L (10-37); BILIRUBIN,TOTAL 2.2 MG/DL (0.1-1.0); BLOOD UREA NITROGEN 30 MG/DL (7-18); BUN/CREATININE RATIO 23.1 (5.4-32.0); CALCIUM 8.2 MG/DL (8.5-10.1); CHLORIDE 102 MMOL/L (99-107); GLUCOSE 99 MG/DL (70-104); MAGNESIUM 1.6 MG/DL (1.5-2.4); PHOSPHORUS 4.9 MG/DL (2.3-4.5); POTASSIUM 3.8 MMOL/L (3.5-5.1); SODIUM 133 MMOL/L (135-145); TOTAL CARBON DIOXIDE 24.3 MMOL/L (24-32); TOTAL PROTEIN 6.2 G/DL (6.4-8.2); eGFR 57 ML/MIN
[2020-04-29 07:00] VITALS: BP 107/53
[2020-04-29] MEDS: pantoprazole 40mg Tablet.DR PO SCH (08:00)
[2020-04-29] MEDS: lactobacillus rhamnosus 10,000 MMU CELLS/CAPSULE PO SCH (08:00)
[2020-04-29] MEDS: midodrine 5mg tablet PO SCH (08:00)
[2020-04-29] MEDS: thiamine 100mg tablet PO SCH (08:00)
[2020-04-29] MEDS: K and/or MAG REPLACEMENT MC SCH (08:00)
[2020-04-29] MEDS: furosemide 20MG tablet PO SCH (08:00)
[2020-04-29] MEDS: lactulose 20gm/30ml cup PO SCH ×2 (08:00)
[2020-04-29] MEDS: oxybutynin 5mg tablet PO SCH (08:00)
[2020-04-29] MEDS: folic acid 1mg tablet PO SCH (08:00)
[2020-04-29] MEDS: MULTIVIT-MIN/FERROUS GLUCONATE 9 MG/15 ML LIQUID PO SCH (08:00)
--- NOTE | 2020-04-29 11:00 | NUR ---
Patient stable for discharge home on hospice per MD orders. All belongings collected and sent with patient. Mclain catheter kept in for patient comfort. Optifoams sent home with patient for coccyx. New prescriptions called in to [facility]. PIV discontinued and cannula intact. lead pressman roto gravure printing discontinued. Patient left via [facility] and left via gurney.
== END 2020-04-29 11:00 | disposition hospice, home (50) | DRG 241 ==
LOC: ER 15:16 → ED HOLD 19:33 → PCU 3S 04-09 12:40
PROVIDERS: ADMIT Family Medicine; ATTEND Family Medicine
PROC: 30233N1 Transfusion of Nonautologous Red Blood Cells into Peripheral Vein, Percutaneous Approach (ICD-10-PCS; 2020-04-08)
PROC: 0DJ08ZZ Inspection of Upper Intestinal Tract, Via Natural or Artificial Opening Endoscopic (ICD-10-PCS; principal; 2020-04-09)
PROC: 0W9G3ZZ Drainage of Peritoneal Cavity, Percutaneous Approach (ICD-10-PCS; 2020-04-27)
DX: K29.71 Gastritis, unspecified, with bleeding (principal); K72.90 Hepatic failure, unspecified without coma; K85.20 Alcohol induced acute pancreatitis without necrosis or infection; E87.1 Hypo-osmolality and hyponatremia; D62 Acute posthemorrhagic anemia; D53.9 Nutritional anemia, unspecified; R18.8 Other ascites; Z66 Do not resuscitate; F10.239 Alcohol dependence with withdrawal, unspecified; R00.0 Tachycardia, unspecified; E83.39 Other disorders of phosphorus metabolism; N17.9 Acute kidney failure, unspecified; E87.6 Hypokalemia; T46.0X5A Adverse effect of cardiac-stimulant glycosides and drugs of similar action, initial encounter; D69.6 Thrombocytopenia, unspecified; E43 Unspecified severe protein-calorie malnutrition; K74.60 Unspecified cirrhosis of liver; K76.6 Portal hypertension; K22.8 Other specified diseases of esophagus; K31.89 Other diseases of stomach and duodenum; E87.0 Hyperosmolality and hypernatremia; K70.10 Alcoholic hepatitis without ascites; R50.9 Fever, unspecified; R77.2 Abnormality of alphafetoprotein; E86.0 Dehydration; W18.2XXA Fall in (into) shower or empty bathtub, initial encounter; Y92.091 Bathroom in other non-institutional residence as the place of occurrence of the external cause; Y99.8 Other external cause status; Y93.E1 Activity, personal bathing and showering; Z88.0 Allergy status to penicillin; Z79.899 Other long term (current) drug therapy; Z79.82 Long term (current) use of aspirin; Z68.28 Body mass index [BMI] 28.0-28.9, adult
CPT/HCPCS: 36415; 36430; 43235; 49083; 70450; 70486; 71045; 71250; 74176; 74183; 76937; 80048; 80053; 80162; 81001; 82042; 82103; 82140; 82150; 82272; 82945; 82948; 83615; 83690; 83735; 84100; 84132; 84145; 84157; 84443; 85007; 85008; 85025; 85027; 85610; 85730; 86870; 86885; 86900; 86901; 86922; 87070; 87081; 89051; 92508; 92616; 93005; 96365; 96375; 97110; 97112; 97116; 97161; 97530; 99152; 99285; A4620; C9113; G0378; J0696; J1162; J1940; J1956; J2060; J2250; J2270; J3010; J3411; J3490; J7030; J7040; J7042; J7050; J7060; J7070; P9016